=== PATIENT | male | born 1955 | race Caucasian/White ===

== ENCOUNTER → 2016-12-20 | Outpatient (CLI) | payer OTHER ==
[2016-12-20 07:12] LABS: MEAN CORPUSCULAR HEMOGLOBIN 31.6 pg (27.0-33.0); MEAN CORPUSCULAR HGB CONC 32.8 g/dl (32.0-36.5); MEAN CORPUSCULAR VOLUME 96.2 fl (80.0-96.0); RED CELL DISTRIBUTION WIDTH 12.4 % (11.5-14.5); WHITE BLOOD COUNT 8.8 K/mm3 (4.0-10.0)
[2016-12-20 07:47] LABS: ALBUMIN 3.7 GM/DL (3.2-5.2); ALBUMIN/GLOBULIN RATIO 1.23 (1.00-1.93); ALKALINE PHOSPHATASE 71 U/L (45-117); ALT/SGPT 39 U/L (12-78); ANION GAP 10 MEQ/L (8-16); AST/SGOT 23 U/L (15-37); BILIRUBIN,TOTAL 0.9 MG/DL (0.2-1.0); BLOOD UREA NITROGEN 11 MG/DL (7-18); CALCIUM LEVEL 8.6 MG/DL (8.8-10.2); CARBON DIOXIDE LEVEL 27 MEQ/L (21-32); CHLORIDE LEVEL 101 MEQ/L (98-107); CHOLESTEROL LEVEL 180 MG/DL (<200); GLOMERULAR FILTRATION RATE > 60.0 (>49); GLUCOSE, FASTING 178 MG/DL (80-110); POTASSIUM SERUM 4.2 MEQ/L (3.5-5.1); SODIUM LEVEL 138 MEQ/L (136-145); TOTAL PROTEIN 6.7 GM/DL (6.4-8.2); TRIGLYCERIDES LEVEL 106 MG/DL (<150)
== END ==
LOC: M LAB 06:41
PROVIDERS: ATTEND Family Medicine
DX: E11.65 Type 2 diabetes mellitus with hyperglycemia (principal)

== ENCOUNTER → 2017-02-02 | Outpatient (CLI) | payer OTHER ==
[~2017-02-02] MED LIST: ASPI1TAB PO; CARV6.25 PO; CIPR500T3 PO; FLOM5CAP PO; GLIM2TA PO; LISI-542 PO; METF10004 PO; NAPR250T4 PO; OXYB10TA PO; TYLE650T35 PO; ZOCO40TA PO
[2017-02-02 07:43] LABS: MEAN CORPUSCULAR HEMOGLOBIN 32.6 pg (27.0-33.0); MEAN CORPUSCULAR HGB CONC 33.8 g/dl (32.0-36.5); MEAN CORPUSCULAR VOLUME 96.5 fl (80.0-96.0); RED CELL DISTRIBUTION WIDTH 12.5 % (11.5-14.5); WHITE BLOOD COUNT 9.1 K/mm3 (4.0-10.0)
[2017-02-02 08:08] LABS: INR 0.94
[2017-02-02 08:11] LABS: ANION GAP 10 MEQ/L (8-16); BLOOD UREA NITROGEN 10 MG/DL (7-18); CALCIUM LEVEL 9.1 MG/DL (8.8-10.2); CARBON DIOXIDE LEVEL 26 MEQ/L (21-32); CHLORIDE LEVEL 104 MEQ/L (98-107); GLOMERULAR FILTRATION RATE > 60.0 (>49); GLUCOSE, FASTING 162 MG/DL (80-110); POTASSIUM SERUM 4.4 MEQ/L (3.5-5.1); SODIUM LEVEL 140 MEQ/L (136-145)
== END ==
LOC: M LAB 07:03
PROVIDERS: ATTEND Urology
DX: N32.81 Overactive bladder (principal)

== ENCOUNTER → 2017-02-07 | Outpatient (CLI) | payer OTHER ==
--- NOTE | 2017-02-07 11:23 | REP ---
Chest x-ray: Two views. History: Overactive bladder. Comparison chest x-ray: December 10, 2015. Findings: The lungs are symmetrically aerated and clear. The pleural angles are sharp. Heart is not enlarged. There are degenerative changes in the thoracic spine. Pulmonary vasculature is not increased. Impression: No active disease. Signed by Refugio Leslie MD 02/07/2017 02:02 P
== END ==
LOC: M ADAMS 10:33
PROVIDERS: ATTEND Urology
DX: N32.81 Overactive bladder (principal)

== ENCOUNTER → 2017-02-21 | Day surgery (SDC) | payer OTHER ==
[~2017-02-21] VITALS: Ht 177.8 cm; Wt 137.4 kg
[~2017-02-21] MED LIST changes: +ACETAMINOPHEN 650MG ER TAB (TYLENOL ARTHRITIS) PO SCH; +DESFLURANE 240 ML INHALANT As Ordered ONE; +LIDOCAINE 2% INJ 100 MG/5 ML SDV (FOR ANES.) As Ordered ONE; +LR 1,000 ML IV ONE; +LR 1,000 ML IV SCH; +MIDAZOLAM INJ 2 MG/2 ML VIAL (J2250) As Ordered ONE; +ONDANSETRON 4MG/2ML VIAL (J2405) As Ordered ONE; +ONDANSETRON 4MG/2ML VIAL (J2405) IV PRN; +PERCOCET 5MG/325MG TAB PO PRN; +PROPOFOL 200 MG/20 ML VIAL As Ordered ONE; +fentaNYL 100 MCG/2 ML INJECTION (J3010) As Ordered ONE; +fentaNYL 100 MCG/2 ML INJECTION (J3010) IV PRN
[2017-02-21 15:40] VITALS: BP 163/72
--- NOTE | 2017-02-22 12:10 | RO ---
DATE OF PROCEDURE: 02/21/2017 PREOPERATIVE DIAGNOSIS: Midline prostatic hyperplasia plus prostatic enlargement plus bladder outlet obstruction. POSTOPERATIVE DIAGNOSIS: Midline prostatic hyperplasia plus prostatic enlargement plus bladder outlet obstruction. FINDINGS: Benign prostatic hyperplasia, severe. PROCEDURE: Cystoscopy, plus transurethral resection of the prostate, bipolar TURP. SURGEON: Dr. Cameron Hughes POWERHOUSE TENDER: None. ANESTHESIA: General. COMPLICATIONS: None. ESTIMATED BLOOD LOSS: N/A. HISTORY OF PRESENT ILLNESS: 61-year-old male patient that has low urinary tract symptoms. He has failed Flomax and oxybutynin. On cystoscopy, we found a very large prominent elevated bladder neck and lateral lobes touching. For this reason, we decided to actually take him to the OR for cystoscopy plus transurethral resection of the prostate. Patient has signed the consent form. PROCEDURE DESCRIPTION: With patient under general anesthesia in supine modified low lithotomy position, after prepping and draping the area of concern which included the entire genitalia and abdomen, we started by introducing a cystoscopy #21-Estonian and 30 lens under videoscopy guidance. The fossa navicularis could not be passed with cystoscope. For this reason, we did [place] dilatation of the urethra up to 30 Charriere. Then we passed the cystoscope and the penile urethra, bulbar urethra and membranous urethra were totally normal. The prostate urethra showed a block in the bladder neck with an elevated bladder neck, very high riding in lateral lobes. The bladder had mild trabeculations. Both ureteral orifice were seen excreting clear urine. There were no tumors, no stones, no foreign objects in the bladder. We then exchanged the cystoscope for resectoscope. Under normal saline, we resected the high riding bladder neck from 5 o'clock to 7 o'clock. We then resected the left lateral lobe and the right lateral lobe. With an [employer] evacuator, we extracted all the chips of prostatic tissue. Once we reached the capsule, we fulgurated all the bleeding vessels and secured hemostasis. We then proceeded to actually take the resectoscope out and place a Duarte catheter #20-Estonian with a three way, 20 mL balloon inflated inside the bladder and to gravity. We placed irrigation. PLAN: The patient will go home if irrigation is clear and irrigation will be plugged at that moment in time. He will go home with antibiotic and pain medication. Followup next Sunday for voiding trial. All the chips of prostate tissue were sent for permanent pathology analysis.
== END | disposition home or self-care (01) ==
LOC: M SDC 07:39
PROVIDERS: ATTEND Urology
DX: N40.1 Benign prostatic hyperplasia with lower urinary tract symptoms (principal); I10 Essential (primary) hypertension; E11.9 Type 2 diabetes mellitus without complications; E78.5 Hyperlipidemia, unspecified; G47.30 Sleep apnea, unspecified; Z79.82 Long term (current) use of aspirin; Z79.899 Other long term (current) drug therapy
CPT/HCPCS: 36415; 52601; 86850; 86900; 86901; 88305; J0690; J2250; J2405; J3010

== ENCOUNTER → 2017-03-14 | Outpatient (REF) | payer OTHER ==
[~2017-03-14] MED LIST changes: -ACETAMINOPHEN 650MG ER TAB (TYLENOL ARTHRITIS) PO SCH; -DESFLURANE 240 ML INHALANT As Ordered ONE; -LIDOCAINE 2% INJ 100 MG/5 ML SDV (FOR ANES.) As Ordered ONE; -LR 1,000 ML IV ONE; -LR 1,000 ML IV SCH; -MIDAZOLAM INJ 2 MG/2 ML VIAL (J2250) As Ordered ONE; -ONDANSETRON 4MG/2ML VIAL (J2405) As Ordered ONE; -ONDANSETRON 4MG/2ML VIAL (J2405) IV PRN; -PERCOCET 5MG/325MG TAB PO PRN; -PROPOFOL 200 MG/20 ML VIAL As Ordered ONE; -fentaNYL 100 MCG/2 ML INJECTION (J3010) As Ordered ONE; -fentaNYL 100 MCG/2 ML INJECTION (J3010) IV PRN
== END ==
LOC: M SMT 16:15
PROVIDERS: ATTEND Urology
DX: N40.1 Benign prostatic hyperplasia with lower urinary tract symptoms (principal)

== ENCOUNTER → 2017-05-03 | Outpatient (REF) | payer OTHER ==
[2017-05-03 20:07] LABS: CALCIUM OXALATE CRYSTALS MODERATE
== END ==
LOC: M SMT 16:53
PROVIDERS: ATTEND Urology
DX: N40.0 Benign prostatic hyperplasia without lower urinary tract symptoms (principal)

== ENCOUNTER → 2017-07-07 | Outpatient (CLI) | payer OTHER ==
[2017-07-07 08:47] LABS: ANION GAP 8 MEQ/L (8-16); BLOOD UREA NITROGEN 14 MG/DL (7-18); CALCIUM LEVEL 8.4 MG/DL (8.8-10.2); CARBON DIOXIDE LEVEL 27 MEQ/L (21-32); CHLORIDE LEVEL 105 MEQ/L (98-107); CREATININE FOR GFR 0.93 MG/DL (0.70-1.30); GLOMERULAR FILTRATION RATE > 60.0 (>49); GLUCOSE, FASTING 159 MG/DL (80-110); POTASSIUM SERUM 4.4 MEQ/L (3.5-5.1); SODIUM LEVEL 140 MEQ/L (136-145)
== END ==
LOC: M LAB 07:58
PROVIDERS: ATTEND Family Medicine
DX: E11.65 Type 2 diabetes mellitus with hyperglycemia (principal)

== ENCOUNTER → 2017-08-06 | Outpatient (REF) | payer OTHER ==
[2017-08-06 17:29] LABS: APPEARANCE, URINE CLEAR (CLEAR); BACTERIA, URINE AUTO NEGATIVE (NEGATIVE); BILIRUBIN, URINE AUTO NEGATIVE (NEGATIVE); BLOOD, URINE BLOOD NEGATIVE (NEGATIVE); COLOR, URINE YELLOW (YELLOW); GLUCOSE, URINE (UA) AUTO NEGATIVE (NEGATIVE); KETONE, URINE AUTO NEGATIVE (NEGATIVE); LEUKOCYTE ESTERASE, URINE AUTO NEGATIVE (NEGATIVE); MUCUS, URINE SMALL (NEGATIVE); NITRITE, URINE AUTO NEGATIVE (NEGATIVE); PROTEIN, URINE AUTO NEGATIVE (NEGATIVE); RBC, URINE AUTO 3 /HPF (0-3); SPECIFIC GRAVITY URINE AUTO 1.019 (1.002-1.035); SQUAMOUS EPITHELIAL CELL UR AU 0 /HPF (0-6); UROBILINOGEN, URINE AUTO 0.2 mg/dL (0.0-2.0); WBC, URINE AUTO 2 /HPF (0-3)
== END ==
LOC: M SMT 16:37
DX: R39.9 Unspecified symptoms and signs involving the genitourinary system (principal)

== ENCOUNTER → 2017-08-30 | Outpatient (CLI) | payer OTHER | LOC: M WUC 10:43 | DX: M25.579 Pain in unspecified ankle and joints of unspecified foot (principal) ==

== ENCOUNTER 2017-11-28 09:55 | Day surgery (SDC) | payer OTHER ==
[2017-11-28] MEDS ORDERED: NS 1,000 ML IV (10:00)
[2017-11-28] MEDS ORDERED: PROPOFOL 200 MG/20 ML VIAL As Ordered ×2 (10:51→10:52)
== END 2017-11-28 12:11 | disposition home or self-care (01) ==
LOC: M OPP 09:55
DX: Z12.11 Encounter for screening for malignant neoplasm of colon (principal); Z86.010 Personal history of colon polyps; K64.0 First degree hemorrhoids; I10 Essential (primary) hypertension; E78.5 Hyperlipidemia, unspecified; E11.9 Type 2 diabetes mellitus without complications; M19.90 Unspecified osteoarthritis, unspecified site; G47.8 Other sleep disorders; G47.30 Sleep apnea, unspecified; R06.83 Snoring; R06.02 Shortness of breath; N40.1 Benign prostatic hyperplasia with lower urinary tract symptoms; R39.15 Urgency of urination; K57.30 Diverticulosis of large intestine without perforation or abscess without bleeding; E66.9 Obesity, unspecified; Z79.84 Long term (current) use of oral hypoglycemic drugs; Z79.82 Long term (current) use of aspirin; Z79.899 Other long term (current) drug therapy; Z80.52 Family history of malignant neoplasm of bladder; Z80.8 Family history of malignant neoplasm of other organs or systems
CPT/HCPCS: 45378

== ENCOUNTER → 2018-02-06 | Outpatient (CLI) | payer OTHER ==
[2018-02-06 13:50] LABS: PSA SCREENING 0.35 NG/ML (< 4.0)
== END ==
LOC: M WUC 10:13
DX: Z12.5 Encounter for screening for malignant neoplasm of prostate (principal)
CPT/HCPCS: G0103

== ENCOUNTER → 2018-04-08 | Outpatient (CLI) | payer OTHER ==
[2018-04-08 22:11] LABS: ALBUMIN 3.8 GM/DL (3.2-5.2); ALKALINE PHOSPHATASE 74 U/L (45-117); ALT/SGPT 33 U/L (12-78); ANION GAP 8 MEQ/L (8-16); AST/SGOT 20 U/L (7-37); BLOOD UREA NITROGEN 13 MG/DL (7-18); CARBON DIOXIDE LEVEL 27 MEQ/L (21-32); CHLORIDE LEVEL 104 MEQ/L (98-107); CREATININE FOR GFR 0.89 MG/DL (0.70-1.30); GLOMERULAR FILTRATION RATE > 60.0 (>49); GLUCOSE, FASTING 192 MG/DL (70-100); POTASSIUM SERUM 4.2 MEQ/L (3.5-5.1); SODIUM LEVEL 139 MEQ/L (136-145)
[2018-04-08 22:50] LABS: ESTIMATED AVERAGE GLUCOSE 189 MG/DL (60-110); HEMOGLOBIN A1c 8.2 %
[2018-04-08 23:11] LABS: ALBUMIN/GLOBULIN RATIO 1.19 (1.00-1.93)
== END ==
LOC: M WUC 08:53
DX: E11.65 Type 2 diabetes mellitus with hyperglycemia (principal)
CPT/HCPCS: 80053

== ENCOUNTER → 2018-06-19 | Outpatient (CLI) | payer OTHER ==
[2018-06-19 13:29] LABS: BASO # 0.1 10^3/uL (0.0-0.2); BASO % 0.7 % (0.0-1.0); EOS # 0.3 10^3/uL (0.0-0.50); EOS % 3.4 % (0.0-3.0); HEMATOCRIT 46.5 % (42.0-52.0); HEMOGLOBIN 15.2 g/dl (13.5-17.5); IMMATURE GRANULOCYTE % 0.3 % (0-3.0); LYMPH # 2.5 10^3/uL (1.5-4.5); LYMPH % 28.8 % (24.0-44.0); MEAN CORPUSCULAR HEMOGLOBIN 31.7 pg (27.0-33.0); MEAN CORPUSCULAR HGB CONC 32.7 g/dl (32.0-36.5); MEAN CORPUSCULAR VOLUME 96.9 fl (80.0-96.0); MONO # 0.9 10^3/uL (0.0-0.8); MONO % 10.2 % (0.0-5.0); NEUTROPHILS % 56.6 % (36.0-66.0); PLATELET COUNT, AUTOMATED 263 10^3/uL (150-450); RED CELL DISTRIBUTION WIDTH 12.8 % (11.5-14.5); WHITE BLOOD COUNT 8.8 10^3/uL (4.0-10.0)
[2018-06-19 13:39] LABS: ALBUMIN 3.9 GM/DL (3.2-5.2); ALBUMIN/GLOBULIN RATIO 1.26 (1.00-1.93); ALKALINE PHOSPHATASE 70 U/L (45-117); ALT/SGPT 28 U/L (12-78); ANION GAP 5 MEQ/L (8-16); AST/SGOT 19 U/L (7-37); BILIRUBIN,TOTAL 0.9 MG/DL (0.2-1.0); BLOOD UREA NITROGEN 14 MG/DL (7-18); CALCIUM LEVEL 9.3 MG/DL (8.8-10.2); CARBON DIOXIDE LEVEL 29 MEQ/L (21-32); CHLORIDE LEVEL 105 MEQ/L (98-107); CREATININE FOR GFR 1.02 MG/DL (0.70-1.30); GLOMERULAR FILTRATION RATE > 60.0 (>49); GLUCOSE, FASTING 126 MG/DL (70-100); POTASSIUM SERUM 4.5 MEQ/L (3.5-5.1); SODIUM LEVEL 139 MEQ/L (136-145)
[2018-06-19 13:44] LABS: ESTIMATED AVERAGE GLUCOSE 143 MG/DL (60-110); HEMOGLOBIN A1c 6.6 %
== END ==
LOC: M WUC 10:21
DX: Z01.812 Encounter for preprocedural laboratory examination (principal); E66.01 Morbid (severe) obesity due to excess calories; E11.9 Type 2 diabetes mellitus without complications; G47.33 Obstructive sleep apnea (adult) (pediatric)
CPT/HCPCS: 84443

== ENCOUNTER → 2018-07-05 | Outpatient (CLI) | payer OTHER ==
[2018-07-05 11:18] LABS: ESTIMATED AVERAGE GLUCOSE 148 MG/DL (60-110); HEMOGLOBIN A1c 6.8 %
[2018-07-05 11:30] LABS: FREE T4 1.16 NG/DL (0.76-1.46)
== END ==
LOC: M WUC 09:38
DX: E11.65 Type 2 diabetes mellitus with hyperglycemia (principal)
CPT/HCPCS: 84443

== ENCOUNTER → 2018-08-14 | Outpatient (CLI) | payer OTHER ==
[~2018-08-14] MED LIST changes: +FLOM0.4C39 PO; -FLOM5CAP PO
[2018-08-14 11:59] LABS: BASO % 0.6 % (0.0-1.0); EOS # 0.2 10^3/uL (0.0-0.50); EOS % 3.4 % (0.0-3.0); HEMATOCRIT 41.8 % (42.0-52.0); HEMOGLOBIN 13.8 g/dl (13.5-17.5); LYMPH % 31.9 % (24.0-44.0); MEAN CORPUSCULAR HEMOGLOBIN 31.2 pg (27.0-33.0); MEAN CORPUSCULAR VOLUME 94.6 fl (80.0-96.0); MONO # 0.7 10^3/uL (0.0-0.8); MONO % 11.3 % (0.0-5.0); NEUTROPHILS # 3.4 10^3/uL (1.8-7.7); NEUTROPHILS % 52.5 % (36.0-66.0); PLATELET COUNT, AUTOMATED 216 10^3/uL (150-450); RED BLOOD COUNT 4.42 10^6/uL (4.30-6.10); WHITE BLOOD COUNT 6.4 10^3/uL (4.0-10.0)
[2018-08-14 12:00] LABS: HEMATOCRIT 41.8 % (42.0-52.0)
[2018-08-14 12:29] LABS: HEMOGLOBIN A1c 6.7 %
[2018-08-14 12:33] LABS: ALBUMIN 3.5 GM/DL (3.2-5.2); ALT/SGPT 25 U/L (12-78); BILIRUBIN,TOTAL 0.8 MG/DL (0.2-1.0); BLOOD UREA NITROGEN 8 MG/DL (7-18); CALCIUM LEVEL 8.8 MG/DL (8.8-10.2); CARBON DIOXIDE LEVEL 29 MEQ/L (21-32); CHLORIDE LEVEL 103 MEQ/L (98-107); CREATININE FOR GFR 0.67 MG/DL (0.70-1.30); FERRITIN 383 NG/ML (26-388); GLOMERULAR FILTRATION RATE > 60.0 (>49); GLUCOSE, FASTING 138 MG/DL (70-100); IRON (FE) 70 UG/DL (65-175); MAGNESIUM LEVEL 1.8 MG/DL (1.8-2.4); PERCENT SATURATION 29.4 % (19.7-50.0); PHOSPHORUS LEVEL 2.8 MG/DL (2.5-4.9); POTASSIUM SERUM 3.7 MEQ/L (3.5-5.1); SODIUM LEVEL 140 MEQ/L (136-145); TOTAL IRON BINDING CAPACITY 238 UG/DL (250-450); VITAMIN B12 LEVEL 1593 PG/ML (247-911)
== END ==
LOC: M WUC 10:01
PROVIDERS: ATTEND Surgery
DX: K91.2 Postsurgical malabsorption, not elsewhere classified (principal); E55.9 Vitamin D deficiency, unspecified; Z98.84 Bariatric surgery status

== ENCOUNTER → 2018-10-02 | Outpatient (CLI) | payer OTHER ==
[2018-10-02 10:25] LABS: HEMOGLOBIN A1c 6.2 %
== END ==
LOC: M WUC 08:22
PROVIDERS: ATTEND Physician Assistant
DX: E11.65 Type 2 diabetes mellitus with hyperglycemia (principal)

== ENCOUNTER → 2018-10-24 | Outpatient (REF) | payer OTHER | LOC: M LAB REF 15:04 | PROVIDERS: ATTEND Surgery | DX: L72.3 Sebaceous cyst (principal) ==

== ENCOUNTER → 2019-01-02 | Outpatient (CLI) | payer OTHER ==
[~2019-01-02] MED LIST changes: -ASPI1TAB PO; +ASPI81TA26 PO; -GLIM2TA PO; +GLIM2TAB29 PO
[2019-01-02 09:28] LABS: BASO # 0.1 10^3/uL (0.0-0.2); BASO % 1.1 % (0.0-1.0); EOS # 0.3 10^3/uL (0.0-0.50); EOS % 4.3 % (0.0-3.0); HEMATOCRIT 40.5 % (42.0-52.0); HEMOGLOBIN 13.2 g/dl (13.5-17.5); LYMPH # 2.8 10^3/uL (1.5-4.5); LYMPH % 39.9 % (24.0-44.0); MEAN CORPUSCULAR HEMOGLOBIN 32.8 pg (27.0-33.0); MEAN CORPUSCULAR HGB CONC 32.6 g/dl (32.0-36.5); MEAN CORPUSCULAR VOLUME 100.5 fl (80.0-96.0); MONO # 0.7 10^3/uL (0.0-0.8); MONO % 9.8 % (0.0-5.0); NEUTROPHILS # 3.1 10^3/uL (1.8-7.7); NEUTROPHILS % 44.8 % (36.0-66.0); PLATELET COUNT, AUTOMATED 272 10^3/uL (150-450); RED BLOOD COUNT 4.03 10^6/uL (4.30-6.10)
[2019-01-02 09:42] LABS: HEMOGLOBIN A1c 5.7 %
[2019-01-02 09:59] LABS: ALBUMIN 3.6 GM/DL (3.2-5.2); ALT/SGPT 34 U/L (12-78); BILIRUBIN,TOTAL 1.1 MG/DL (0.2-1.0); BLOOD UREA NITROGEN 10 MG/DL (7-18); CALCIUM LEVEL 9.5 MG/DL (8.8-10.2); CARBON DIOXIDE LEVEL 30 MEQ/L (21-32); CHLORIDE LEVEL 105 MEQ/L (98-107); CREATININE FOR GFR 0.75 MG/DL (0.70-1.30); FERRITIN 106 NG/ML (26-388); GLOMERULAR FILTRATION RATE > 60.0 (>49); GLUCOSE, FASTING 91 MG/DL (70-100); IRON (FE) 60 UG/DL (65-175); MAGNESIUM LEVEL 2.4 MG/DL (1.8-2.4); PERCENT SATURATION 20.8 % (19.7-50.0); PHOSPHORUS LEVEL 4.5 MG/DL (2.5-4.9); POTASSIUM SERUM 4.4 MEQ/L (3.5-5.1); SODIUM LEVEL 143 MEQ/L (136-145); TOTAL IRON BINDING CAPACITY 289 UG/DL (250-450); TOTAL PROTEIN 6.2 GM/DL (6.4-8.2)
[2019-01-02 10:08] LABS: TOTAL 25(OH) VITAMIN D 26.8 NG/ML (30.0-100.0); VITAMIN B12 LEVEL 1384 PG/ML (247-911)
[2019-01-02 10:09] LABS: FOLATE 9.8 NG/ML (>5.4)
== END ==
LOC: M WUC 08:15
PROVIDERS: ATTEND Physician Assistant
DX: K91.2 Postsurgical malabsorption, not elsewhere classified (principal); Z98.84 Bariatric surgery status; E55.9 Vitamin D deficiency, unspecified

== ENCOUNTER → 2019-05-13 | Outpatient (CLI) | payer MEDICARE, OTHER ==
[~2019-05-13] MED LIST changes: -OXYB10TA PO; +OXYB10TA2 PO
[2019-05-13 12:26] LABS: BASO % 0.7 % (0.0-1.0); EOS # 0.2 10^3/uL (0.0-0.5); EOS % 3.1 % (0.0-3.0); HEMATOCRIT 42.4 % (42.0-52.0); HEMOGLOBIN 14.2 g/dl (13.5-17.5); LYMPH # 2.3 10^3/uL (1.5-5.0); LYMPH % 42.9 % (24.0-44.0); MEAN CORPUSCULAR HEMOGLOBIN 33.5 pg (27.0-33.0); MEAN CORPUSCULAR HGB CONC 33.5 g/dl (32.0-36.5); MONO # 0.6 10^3/uL (0.0-0.8); MONO % 10.8 % (0.0-5.0); NEUTROPHILS # 2.3 10^3/uL (1.5-8.5); NEUTROPHILS % 42.3 % (36.0-66.0); PLATELET COUNT, AUTOMATED 236 10^3/uL (150-450); RED BLOOD COUNT 4.24 10^6/uL (4.30-6.10); WHITE BLOOD COUNT 5.5 10^3/uL (4.0-10.0)
[2019-05-13 12:44] LABS: ALBUMIN 3.6 GM/DL (3.2-5.2); ALT/SGPT 33 U/L (12-78); BILIRUBIN,TOTAL 1.4 MG/DL (0.2-1.0); BLOOD UREA NITROGEN 16 MG/DL (7-18); CARBON DIOXIDE LEVEL 31 MEQ/L (21-32); CHLORIDE LEVEL 104 MEQ/L (98-107); CHOLESTEROL LEVEL 221 MG/DL (<200); CHOLESTEROL RISK RATIO 3.298 (<5); CREATININE FOR GFR 0.76 MG/DL (0.70-1.30); FERRITIN 91 NG/ML (26-388); FREE T4 1.03 NG/DL (0.76-1.46); GLOMERULAR FILTRATION RATE > 60.0 (>49); GLUCOSE, FASTING 103 MG/DL (70-100); HDL CHOLESTEROL 67 MG/DL (>40); IRON (FE) 124 UG/DL (65-175); LDL CHOLESTEROL 138 MG/DL (<100); NON-HDL-C 154 MG/DL; PERCENT SATURATION 40.7 % (19.7-50.0); POTASSIUM SERUM 3.9 MEQ/L (3.5-5.1); SODIUM LEVEL 141 MEQ/L (136-145); TOTAL IRON BINDING CAPACITY 305 UG/DL (250-450); TOTAL PROTEIN 6.4 GM/DL (6.4-8.2); TRIGLYCERIDES LEVEL 82 MG/DL (<150)
== END ==
LOC: M WUC 09:28
PROVIDERS: ATTEND Physician Assistant
DX: Z98.84 Bariatric surgery status (principal); E78.2 Mixed hyperlipidemia; D64.9 Anemia, unspecified

== ENCOUNTER → 2019-06-08 | Outpatient (CLI) | payer MEDICARE, OTHER ==
--- NOTE | 2019-06-10 13:57 | SLEEPCENT ---
DATE OF STUDY: 06/08/2019 ORDERED BY: Dr. Blanco Nocturnal polysomnography was performed for the retitration of pressure therapy in this patient with a prior history of obstructive sleep apnea syndrome who has effected significant weight loss. For testing, a ResMed AirFit F20 full face mask of medium size was used and 4 cm of water pressure were applied to the circuit and the lights were extinguished. 7 hours and 44 minutes of data were reviewed. There were 390.5 minutes of sleep identified. Sleep latency was mildly prolonged at 21.5 minutes. Rapid eye movement (REM) latency was normal at 85.5 minutes. Sleep architecture improved with optimal pressure therapy. There were 3 REM cycles appreciated. Overall sleep efficiency was 85%. The patient's electrocardiogram showed a sinus rhythm with an average heart rate of 50 beats per minute. Electroencephalogram (EEG) showed normal waveforms for awake and sleep. Respiratory events were fully palliated with C-PAP at a pressure of +8. Some limb activity was seen early in the study, limb movement arousal index was 4. IMPRESSION: Obstructive sleep apnea syndrome (G47.33). RECOMMENDATION: Nightly use of pressure therapy at 8 cm of water.
== END ==
LOC: M SLEEP 20:00
PROVIDERS: ATTEND Internal Medicine Pulmonary Disease
DX: G47.33 Obstructive sleep apnea (adult) (pediatric) (principal)

== ENCOUNTER → 2019-06-23 | Outpatient (CLI) | payer MEDICARE, OTHER ==
[2019-06-23 12:51] LABS: BASO # 0.1 10^3/uL (0.0-0.2); BASO % 1.1 % (0.0-1.0); EOS # 0.3 10^3/uL (0.0-0.5); EOS % 5.8 % (0.0-3.0); HEMATOCRIT 43.8 % (42.0-52.0); HEMOGLOBIN 14.1 g/dl (13.5-17.5); LYMPH # 2.5 10^3/uL (1.5-5.0); LYMPH % 46.6 % (24.0-44.0); MEAN CORPUSCULAR HEMOGLOBIN 32.6 pg (27.0-33.0); MEAN CORPUSCULAR HGB CONC 32.2 g/dl (32.0-36.5); MEAN CORPUSCULAR VOLUME 101.2 fl (80.0-96.0); MONO # 0.7 10^3/uL (0.0-0.8); MONO % 12.1 % (0.0-5.0); NEUTROPHILS # 1.9 10^3/uL (1.5-8.5); NEUTROPHILS % 34.2 % (36.0-66.0); PLATELET COUNT, AUTOMATED 210 10^3/uL (150-450); RED BLOOD COUNT 4.33 10^6/uL (4.30-6.10); WHITE BLOOD COUNT 5.4 10^3/uL (4.0-10.0)
[2019-06-23 12:56] LABS: ALBUMIN 3.7 GM/DL (3.2-5.2); ALT/SGPT 58 U/L (12-78); BILIRUBIN,TOTAL 1.3 MG/DL (0.2-1.0); BLOOD UREA NITROGEN 14 MG/DL (7-18); CALCIUM LEVEL 9.3 MG/DL (8.8-10.2); CARBON DIOXIDE LEVEL 32 MEQ/L (21-32); CHLORIDE LEVEL 108 MEQ/L (98-107); CREATININE FOR GFR 0.83 MG/DL (0.70-1.30); FERRITIN 88 NG/ML (26-388); GLOMERULAR FILTRATION RATE > 60.0 (>49); GLUCOSE, FASTING 94 MG/DL (70-100); IRON (FE) 76 UG/DL (65-175); MAGNESIUM LEVEL 2.2 MG/DL (1.8-2.4); PERCENT SATURATION 25.9 % (19.7-50.0); PHOSPHORUS LEVEL 4.7 MG/DL (2.5-4.9); POTASSIUM SERUM 4.3 MEQ/L (3.5-5.1); SODIUM LEVEL 145 MEQ/L (136-145); TOTAL IRON BINDING CAPACITY 293 UG/DL (250-450); TOTAL PROTEIN 6.3 GM/DL (6.4-8.2)
[2019-06-23 12:59] LABS: HEMATOCRIT 43.8 % (42.0-52.0)
[2019-06-23 13:02] LABS: TOTAL 25(OH) VITAMIN D 34.9 NG/ML (30.0-100.0); VITAMIN B12 LEVEL 1960 PG/ML (247-911)
[2019-06-23 14:00] LABS: HEMOGLOBIN A1c 5.5 %
== END ==
LOC: M WUC 08:45
PROVIDERS: ATTEND Physician Assistant
DX: K91.2 Postsurgical malabsorption, not elsewhere classified (principal); Z98.84 Bariatric surgery status; E55.9 Vitamin D deficiency, unspecified

== ENCOUNTER → 2019-09-17 | Outpatient (CLI) | payer MEDICARE, OTHER ==
[~2019-09-17] MED LIST changes: -OXYB10TA2 PO; +OXYB10TA23 PO
[2019-09-17 12:55] LABS: BASO # 0.1 10^3/uL (0.0-0.2); BASO % 1.3 % (0.0-1.0); EOS # 0.3 10^3/uL (0.0-0.5); EOS % 4.4 % (0.0-3.0); HEMATOCRIT 43.1 % (42.0-52.0); HEMOGLOBIN 14.1 g/dl (13.5-17.5); LYMPH # 2.7 10^3/uL (1.5-5.0); LYMPH % 43.4 % (24.0-44.0); MEAN CORPUSCULAR HEMOGLOBIN 32.3 pg (27.0-33.0); MEAN CORPUSCULAR HGB CONC 32.7 g/dl (32.0-36.5); MEAN CORPUSCULAR VOLUME 98.9 fl (80.0-96.0); MONO # 0.6 10^3/uL (0.0-0.8); MONO % 9.8 % (0.0-5.0); NEUTROPHILS # 2.5 10^3/uL (1.5-8.5); NEUTROPHILS % 40.9 % (36.0-66.0); PLATELET COUNT, AUTOMATED 231 10^3/uL (150-450); RED BLOOD COUNT 4.36 10^6/uL (4.30-6.10); WHITE BLOOD COUNT 6.1 10^3/uL (4.0-10.0)
[2019-09-17 13:12] LABS: ALT/SGPT 56 U/L (12-78); BILIRUBIN,TOTAL 1.7 MG/DL (0.2-1.0); BLOOD UREA NITROGEN 19 MG/DL (7-18); CALCIUM LEVEL 9.4 MG/DL (8.8-10.2); CARBON DIOXIDE LEVEL 33 MEQ/L (21-32); CHLORIDE LEVEL 105 MEQ/L (98-107); CHOLESTEROL LEVEL 191 MG/DL (<200); CHOLESTEROL RISK RATIO 2.581 (<5); CREATININE FOR GFR 0.85 MG/DL (0.70-1.30); GLOMERULAR FILTRATION RATE > 60.0 (>49); GLUCOSE, FASTING 110 MG/DL (70-100); HDL CHOLESTEROL 74 MG/DL (>40); LDL CHOLESTEROL 101 MG/DL (<100); NON-HDL-C 117 MG/DL; POTASSIUM SERUM 4.1 MEQ/L (3.5-5.1); SODIUM LEVEL 139 MEQ/L (136-145); TOTAL PROTEIN 6.6 GM/DL (6.4-8.2); TRIGLYCERIDES LEVEL 79 MG/DL (<150)
[2019-09-17 13:33] LABS: HEMOGLOBIN A1c 5.8 %
== END ==
LOC: M WUC 08:51
PROVIDERS: ATTEND Physician Assistant
DX: E78.2 Mixed hyperlipidemia (principal); D64.9 Anemia, unspecified; R73.01 Impaired fasting glucose; Z79.82 Long term (current) use of aspirin

== ENCOUNTER → 2020-06-25 | Outpatient (CLI) | payer MEDICARE, OTHER ==
[~2020-06-25] MED LIST changes: +ACET650T61 PO; -TYLE650T35 PO
[2020-06-25 11:51] LABS: BASO # 0.1 10^3/uL (0.0-0.2); BASO % 0.8 % (0.0-1.0); EOS # 0.2 10^3/uL (0.0-0.5); HEMATOCRIT 44.8 % (42.0-52.0); HEMOGLOBIN 14.2 g/dl (13.5-17.5); LYMPH # 2.7 10^3/uL (1.5-5.0); LYMPH % 36.6 % (24.0-44.0); MEAN CORPUSCULAR HEMOGLOBIN 31.6 pg (27.0-33.0); MEAN CORPUSCULAR HGB CONC 31.7 g/dl (32.0-36.5); MEAN CORPUSCULAR VOLUME 99.6 fl (80.0-96.0); MONO # 0.7 10^3/uL (0.0-0.8); MONO % 10.1 % (0.0-5.0); NEUTROPHILS # 3.6 10^3/uL (1.5-8.5); NEUTROPHILS % 49.1 % (36.0-66.0); PLATELET COUNT, AUTOMATED 240 10^3/uL (150-450); WHITE BLOOD COUNT 7.3 10^3/uL (4.0-10.0)
[2020-06-25 12:13] LABS: HEMOGLOBIN A1c 5.6 %
[2020-06-25 12:18] LABS: ALBUMIN 3.7 GM/DL (3.2-5.2); ALT/SGPT 34 U/L (12-78); BILIRUBIN,TOTAL 1.1 MG/DL (0.2-1.0); BLOOD UREA NITROGEN 12 MG/DL (7-18); CALCIUM LEVEL 8.9 MG/DL (8.8-10.2); CARBON DIOXIDE LEVEL 30 MEQ/L (21-32); CHLORIDE LEVEL 106 MEQ/L (98-107); CREATININE FOR GFR 0.87 MG/DL (0.70-1.30); FERRITIN 102 NG/ML (26-388); GLOMERULAR FILTRATION RATE > 60.0 (>49); GLUCOSE, FASTING 107 MG/DL (70-100); IRON (FE) 93 UG/DL (65-175); MAGNESIUM LEVEL 2.3 MG/DL (1.8-2.4); PERCENT SATURATION 31.3 % (19.7-50.0); PHOSPHORUS LEVEL 3.9 MG/DL (2.5-4.9); POTASSIUM SERUM 4.2 MEQ/L (3.5-5.1); SODIUM LEVEL 141 MEQ/L (136-145); TOTAL IRON BINDING CAPACITY 297 UG/DL (250-450); TOTAL PROTEIN 6.5 GM/DL (6.4-8.2)
[2020-06-25 12:27] LABS: TOTAL 25(OH) VITAMIN D 31.1 NG/ML (30.0-100.0); VITAMIN B12 LEVEL 1153 PG/ML (247-911)
[2020-06-29 09:46] LABS: HEMATOCRIT 44.8 % (42.0-52.0)
== END ==
LOC: M WUC 08:45
PROVIDERS: ATTEND Physician Assistant Surgical
DX: K91.2 Postsurgical malabsorption, not elsewhere classified (principal); E55.9 Vitamin D deficiency, unspecified; Z86.39 Personal history of other endocrine, nutritional and metabolic disease; Z98.84 Bariatric surgery status

== ENCOUNTER → 2020-09-22 | Outpatient (CLI) | payer MEDICARE, OTHER ==
[~2020-09-22] MED LIST changes: -LISI-542 PO; +LISI-898 PO
[2020-09-22 10:08] LABS: BASO # 0.1 10^3/uL (0.0-0.2); BASO % 0.9 % (0.0-1.0); EOS # 0.2 10^3/uL (0.0-0.5); EOS % 3.4 % (0.0-3.0); HEMOGLOBIN 14.8 g/dl (13.5-17.5); LYMPH # 2.8 10^3/uL (1.5-5.0); LYMPH % 48.1 % (24.0-44.0); MEAN CORPUSCULAR HEMOGLOBIN 31.6 pg (27.0-33.0); MEAN CORPUSCULAR HGB CONC 32.2 g/dl (32.0-36.5); MEAN CORPUSCULAR VOLUME 98.3 fl (80.0-96.0); MONO # 0.6 10^3/uL (0.0-0.8); NEUTROPHILS # 2.1 10^3/uL (1.5-8.5); NEUTROPHILS % 36.4 % (36.0-66.0); PLATELET COUNT, AUTOMATED 246 10^3/uL (150-450); RED BLOOD COUNT 4.68 10^6/uL (4.30-6.10); WHITE BLOOD COUNT 5.8 10^3/uL (4.0-10.0)
[2020-09-22 10:31] LABS: HEMOGLOBIN A1c 6.2 %
[2020-09-22 10:36] LABS: ALBUMIN 3.8 GM/DL (3.2-5.2); ALT/SGPT 51 U/L (12-78); BILIRUBIN,TOTAL 1.4 MG/DL (0.2-1.0); BLOOD UREA NITROGEN 15 MG/DL (7-18); CALCIUM LEVEL 9.6 MG/DL (8.8-10.2); CARBON DIOXIDE LEVEL 34 MEQ/L (21-32); CHLORIDE LEVEL 102 MEQ/L (98-107); CHOLESTEROL LEVEL 183 MG/DL (<200); CHOLESTEROL RISK RATIO 2.652 (<5); CREATININE FOR GFR 0.89 MG/DL (0.70-1.30); GLOMERULAR FILTRATION RATE > 60.0 (>49); GLUCOSE, FASTING 109 MG/DL (70-100); HDL CHOLESTEROL 69 MG/DL (>40); LDL CHOLESTEROL 98 MG/DL (<100); NON-HDL-C 114 MG/DL; POTASSIUM SERUM 4.2 MEQ/L (3.5-5.1); SODIUM LEVEL 140 MEQ/L (136-145); TOTAL PROTEIN 6.7 GM/DL (6.4-8.2); TRIGLYCERIDES LEVEL 79 MG/DL (<150)
[2020-09-22 10:44] LABS: TOTAL 25(OH) VITAMIN D 28.2 NG/ML (30.0-100.0)
== END ==
LOC: M WUC 08:03
PROVIDERS: ATTEND Physician Assistant
DX: E78.2 Mixed hyperlipidemia (principal); D64.9 Anemia, unspecified; E11.9 Type 2 diabetes mellitus without complications; Z98.84 Bariatric surgery status

== ENCOUNTER → 2021-03-01 | Outpatient (CLI) | payer MEDICARE, OTHER ==
[~2021-03-01] MED LIST changes: -LISI-898 PO; +LISI5TAB11 PO; +NAPR-849 PO; -NAPR250T4 PO
== END ==
LOC: M WUC 10:16
PROVIDERS: ATTEND Physician Assistant
DX: S33.5XXA Sprain of ligaments of lumbar spine, initial encounter (principal); S73.191A Other sprain of right hip, initial encounter; X58.XXXA Exposure to other specified factors, initial encounter; Y92.89 Other specified places as the place of occurrence of the external cause; Y93.9 Activity, unspecified; Y99.9 Unspecified external cause status

== ENCOUNTER → 2021-03-29 | Outpatient (CLI) | payer MEDICARE, OTHER ==
[2021-03-29 12:47] LABS: BASO # 0.1 10^3/uL (0.0-0.2); BASO % 0.8 % (0.0-1.0); EOS # 0.2 10^3/uL (0.0-0.5); EOS % 3.2 % (0.0-3.0); HEMATOCRIT 45.5 % (42.0-52.0); HEMOGLOBIN 14.8 g/dl (13.5-17.5); LYMPH # 2.5 10^3/uL (1.5-5.0); MEAN CORPUSCULAR HEMOGLOBIN 32.2 pg (27.0-33.0); MEAN CORPUSCULAR HGB CONC 32.5 g/dl (32.0-36.5); MEAN CORPUSCULAR VOLUME 99.1 fl (80.0-96.0); MONO # 0.7 10^3/uL (0.0-0.8); MONO % 10.1 % (2.0-8.0); NEUTROPHILS # 3.7 10^3/uL (1.5-8.5); NEUTROPHILS % 51.6 % (36.0-66.0); PLATELET COUNT, AUTOMATED 293 10^3/uL (150-450); RED BLOOD COUNT 4.59 10^6/uL (4.30-6.10); WHITE BLOOD COUNT 7.2 10^3/uL (4.0-10.0)
[2021-03-29 13:07] LABS: HEMOGLOBIN A1c 5.8 %
[2021-03-29 13:12] LABS: ALBUMIN 3.9 GM/DL (3.2-5.2); ALT/SGPT 38 U/L (12-78); BILIRUBIN,TOTAL 1.2 MG/DL (0.2-1.0); BLOOD UREA NITROGEN 13 MG/DL (7-18); CALCIUM LEVEL 9.4 MG/DL (8.8-10.2); CARBON DIOXIDE LEVEL 32 MEQ/L (21-32); CHLORIDE LEVEL 103 MEQ/L (98-107); CHOLESTEROL LEVEL 199 MG/DL (<200); CHOLESTEROL RISK RATIO 3.262 (<5); CREATININE FOR GFR 0.86 MG/DL (0.70-1.30); GLOMERULAR FILTRATION RATE > 60.0 (>49); GLUCOSE, FASTING 125 MG/DL (70-100); HDL CHOLESTEROL 61 MG/DL (>40); LDL CHOLESTEROL 121 MG/DL (<100); NON-HDL-C 138 MG/DL; POTASSIUM SERUM 3.8 MEQ/L (3.5-5.1); SODIUM LEVEL 139 MEQ/L (136-145); TOTAL PROTEIN 6.7 GM/DL (6.4-8.2); TRIGLYCERIDES LEVEL 86 MG/DL (<150)
[2021-03-29 13:13] LABS: TOTAL 25(OH) VITAMIN D 42.9 NG/ML (30.0-100.0)
[2021-03-29 13:29] LABS: MALB URINE SIEMENS 30.6 MG/L; MAU/CREAT RATIO 15.2 MCG/MG (0.0-30.0)
[2021-03-31 00:07] LABS: PSA TOTAL 0.1 ng/mL (0.0-4.0)
== END ==
LOC: M WUC 08:06
PROVIDERS: ATTEND Family Medicine
DX: N40.0 Benign prostatic hyperplasia without lower urinary tract symptoms (principal); E78.2 Mixed hyperlipidemia; D64.9 Anemia, unspecified; E11.9 Type 2 diabetes mellitus without complications; E55.9 Vitamin D deficiency, unspecified; Z79.899 Other long term (current) drug therapy; R97.20 Elevated prostate specific antigen [PSA]

== ENCOUNTER → 2021-05-30 | Outpatient (CLI) | payer MEDICARE, OTHER ==
[~2021-05-30] MED LIST changes: +LISI-898 PO; -LISI5TAB11 PO
== END ==
LOC: M WUC 08:31
PROVIDERS: ATTEND Physician Assistant
DX: M47.897 Other spondylosis, lumbosacral region (principal); M51.37 Other intervertebral disc degeneration, lumbosacral region; M16.11 Unilateral primary osteoarthritis, right hip

== ENCOUNTER → 2021-09-23 | Outpatient (CLI) | payer MEDICARE, OTHER ==
[~2021-09-23] MED LIST changes: -LISI-898 PO; +LISI5TAB11 PO
[2021-09-23 09:44] LABS: BASO # 0.1 10^3/uL (0.0-0.2); BASO % 0.9 % (0.0-1.0); EOS # 0.3 10^3/uL (0.0-0.5); HEMATOCRIT 44.3 % (42.0-52.0); HEMOGLOBIN 14.7 g/dl (13.5-17.5); LYMPH # 2.5 10^3/uL (1.5-5.0); LYMPH % 32.6 % (24.0-44.0); MEAN CORPUSCULAR HEMOGLOBIN 32.2 pg (27.0-33.0); MEAN CORPUSCULAR HGB CONC 33.2 g/dl (32.0-36.5); MEAN CORPUSCULAR VOLUME 97.1 fl (80.0-96.0); MONO # 0.8 10^3/uL (0.0-0.8); NEUTROPHILS # 3.9 10^3/uL (1.5-8.5); NEUTROPHILS % 51.4 % (36.0-66.0); PLATELET COUNT, AUTOMATED 256 10^3/uL (150-450); RED BLOOD COUNT 4.56 10^6/uL (4.30-6.10); WHITE BLOOD COUNT 7.7 10^3/uL (4.0-10.0)
[2021-09-23 10:01] LABS: HEMOGLOBIN A1c 6.2 %
[2021-09-23 10:18] LABS: ALBUMIN 3.7 GM/DL (3.2-5.2); ALT/SGPT 46 U/L (12-78); BLOOD UREA NITROGEN 15 MG/DL (7-18); CALCIUM LEVEL 9.3 MG/DL (8.8-10.2); CARBON DIOXIDE LEVEL 33 MEQ/L (21-32); CHLORIDE LEVEL 106 MEQ/L (98-107); CHOLESTEROL LEVEL 206 MG/DL (<200); CHOLESTEROL RISK RATIO 3.218 (<5); CREATININE FOR GFR 0.86 MG/DL (0.70-1.30); FREE T4 1.06 NG/DL (0.76-1.46); GLOMERULAR FILTRATION RATE > 60.0 (>49); GLUCOSE, FASTING 120 MG/DL (70-100); HDL CHOLESTEROL 64 MG/DL (>40); LDL CHOLESTEROL 117 MG/DL (<100); NON-HDL-C 142 MG/DL; POTASSIUM SERUM 4.4 MEQ/L (3.5-5.1); SODIUM LEVEL 142 MEQ/L (136-145); TRIGLYCERIDES LEVEL 126 MG/DL (<150)
[2021-09-23 12:40] LABS: FOLATE 13.9 NG/ML; VITAMIN B12 LEVEL 1588 PG/ML
== END ==
LOC: M WUC 08:16
PROVIDERS: ATTEND Physician Assistant
DX: E78.2 Mixed hyperlipidemia (principal); D64.9 Anemia, unspecified; E11.9 Type 2 diabetes mellitus without complications

== ENCOUNTER 2022-02-28 20:23 | Emergency (ER) | payer MEDICARE, OTHER ==
[~2022-02-28] VITALS: Ht 175.3 cm; Wt 90.9 kg
[2022-02-28 20:23] VITALS: BP 177/81
[2022-02-28] MEDS ORDERED: CALT1TAB PO (20:38)
[2022-02-28] MEDS ORDERED: NOXI1TAB PO (20:38)
[2022-02-28] MEDS ORDERED: VITATAB64 PO (20:38)
[2022-02-28 23:15] LABS: BASO % 0.3 % (0.0-1.0); EOS # 0.1 10^3/uL (0.0-0.5); EOS % 0.6 % (0.0-3.0); HEMATOCRIT 43.1 % (42.0-52.0); HEMOGLOBIN 14.7 g/dl (13.5-17.5); LYMPH # 1.5 10^3/uL (1.5-5.0); LYMPH % 12.3 % (24.0-44.0); MEAN CORPUSCULAR HEMOGLOBIN 32.8 pg (27.0-33.0); MEAN CORPUSCULAR HGB CONC 34.1 g/dl (32.0-36.5); MEAN CORPUSCULAR VOLUME 96.2 fl (80.0-96.0); MONO # 0.9 10^3/uL (0.0-0.8); MONO % 7.5 % (2.0-8.0); NEUTROPHILS # 9.8 10^3/uL (1.5-8.5); PLATELET COUNT, AUTOMATED 260 10^3/uL (150-450); RED BLOOD COUNT 4.48 10^6/uL (4.30-6.10); WHITE BLOOD COUNT 12.4 10^3/uL (4.0-10.0)
[2022-02-28 23:42] LABS: ALBUMIN 3.7 GM/DL (3.2-5.2); ALT/SGPT 38 U/L (12-78); BILIRUBIN,DIRECT 0.2 MG/DL (0.0-0.2); BLOOD UREA NITROGEN 14 MG/DL (7-18); CALCIUM LEVEL 9.4 MG/DL (8.8-10.2); CARBON DIOXIDE LEVEL 27 MEQ/L (21-32); CHLORIDE LEVEL 108 MEQ/L (98-107); CREATININE FOR GFR 0.99 MG/DL (0.70-1.30); GLOMERULAR FILTRATION RATE > 60.0 (>49); GLUCOSE, FASTING 154 MG/DL (70-100); LIPASE 150 U/L (73-393); POTASSIUM SERUM 4.6 MEQ/L (3.5-5.1); SODIUM LEVEL 140 MEQ/L (136-145); TOTAL PROTEIN 7.3 GM/DL (6.4-8.2)
[2022-03-01] MEDS ORDERED: NS 1,000 ML IV ONE (00:35)
[2022-03-01] MEDS ORDERED: CIPROFLOXACIN 400 MG in IV 1 EA IV ONE (02:00)
[2022-03-01] MEDS ORDERED: TAMSULOSIN 0.4 MG CAP PO ONE (02:20)
[2022-03-01] MEDS ORDERED: OXYCODONE/APAP 5MG/325MG(HOME DOSE PACK) PO ONE (03:45)
[2022-03-01] MEDS ORDERED: CIPR-249 PO (03:46)
[2022-03-01] MEDS ORDERED: FLOM0.4C39 PO (03:46)
[2022-03-01] MEDS ORDERED: PERC5TAB12 PO (03:46)
== END 2022-03-01 03:53 | disposition home or self-care (01) ==
LOC: M ED 20:23
DX: N21.1 Calculus in urethra (principal); E78.5 Hyperlipidemia, unspecified; I10 Essential (primary) hypertension; Z98.84 Bariatric surgery status; K80.20 Calculus of gallbladder without cholecystitis without obstruction; K44.9 Diaphragmatic hernia without obstruction or gangrene; I25.10 Atherosclerotic heart disease of native coronary artery without angina pectoris; Z79.82 Long term (current) use of aspirin; Z79.899 Other long term (current) drug therapy
CPT/HCPCS: 74176; 80048; 80076; 81001; 83690; 85025; 96361; 96365; 99284; J0744

== ENCOUNTER → 2022-03-08 | Outpatient (CLI) | payer MEDICARE, OTHER ==
[~2022-03-08] MED LIST changes: +CALT1TAB PO; +CIPR-249 PO; +NOXI1TAB PO; +PERC5TAB12 PO; +VITATAB64 PO
[2022-03-08 19:41] LABS: APPEARANCE, URINE MANUAL CLEAR (CLEAR); COLOR, URINE MANUAL YELLOW (YELLOW)
[2022-03-08 19:42] LABS: BILIRUBIN, URINE MANUAL NEGATIVE (NEGATIVE); BLOOD URINE MANUAL NEGATIVE (NEGATIVE); GLUCOSE, URINE (UA) MANUAL NEGATIVE (NEGATIVE); KETONE, URINE MANUAL NEGATIVE (NEGATIVE); LEUKOCYTE ESTERASE, URINE MAN NEGATIVE (NEGATIVE); NITRITE, URINE MANUAL NEGATIVE (NEGATIVE); PROTEIN, URINE MANUAL NEGATIVE (NEGATIVE); SPECIFIC GRAVITY,URINE MANUAL 1.025 (1.002-1.035); UROBILINOGEN, URINE MANUAL NORMAL (NORMAL)
[2022-03-08 19:48] LABS: HEMATOCRIT 43.4 % (42.0-52.0); HEMOGLOBIN 14.3 g/dl (13.5-17.5); MEAN CORPUSCULAR HEMOGLOBIN 32.4 pg (27.0-33.0); MEAN CORPUSCULAR HGB CONC 32.9 g/dl (32.0-36.5); MEAN CORPUSCULAR VOLUME 98.2 fl (80.0-96.0); PLATELET COUNT, AUTOMATED 328 10^3/uL (150-450); RED BLOOD COUNT 4.42 10^6/uL (4.30-6.10); WHITE BLOOD COUNT 10.6 10^3/uL (4.0-10.0)
[2022-03-08 20:02] LABS: INR 0.93; PROTHROMBIN TIME 12.9 SECONDS (12.7-14.5)
[2022-03-08 20:04] LABS: PARTIAL THROMBOPLASTIN TIME 48.5 SECONDS (25.9-37.0)
[2022-03-08 20:24] LABS: CALCIUM LEVEL 8.7 MG/DL (8.8-10.2); CREATININE FOR GFR 1.32 MG/DL (0.70-1.30); GLOMERULAR FILTRATION RATE 57.4 (>49)
== END ==
LOC: M WUC 15:40
PROVIDERS: ATTEND Nurse Practitioner Women's Health
DX: N20.0 Calculus of kidney (principal); Z01.818 Encounter for other preprocedural examination; Z79.01 Long term (current) use of anticoagulants

== ENCOUNTER → 2022-03-23 | Outpatient (REF) | payer MEDICARE, OTHER ==
[2022-03-23 11:45] LABS: APPEARANCE, URINE MANUAL HAZY (CLEAR); COLOR, URINE MANUAL YELLOW (YELLOW); SPECIFIC GRAVITY,URINE MANUAL 1.025 (1.002-1.035)
[2022-03-23 11:46] LABS: BILIRUBIN, URINE MANUAL NEGATIVE (NEGATIVE); BLOOD URINE MANUAL POSITIVE (NEGATIVE); GLUCOSE, URINE (UA) MANUAL NEGATIVE (NEGATIVE); KETONE, URINE MANUAL NEGATIVE (NEGATIVE); LEUKOCYTE ESTERASE, URINE MAN TRACE (NEGATIVE); NITRITE, URINE MANUAL NEGATIVE (NEGATIVE); PROTEIN, URINE MANUAL TRACE mg/dL (NEGATIVE); UROBILINOGEN, URINE MANUAL NORMAL (NORMAL)
[2022-03-23 11:59] LABS: AMORPHOUS SEDIMENT, URINE SMALL AMOUNT (NEGATIVE); BACTERIA, URINE SMALL AMOUNT; CALCIUM OXALATE CRYSTALS,URINE MOD AMOUNT /hpf; HYALINE CAST, URINE NONE SEEN /lpf (0-1); MUCUS, URINE LARGE AMOUNT (NEGATIVE); RBC, URINE 15-20 /hpf (0-3); SQUAMOUS EPITHELIAL CELL URINE SMALL AMOUNT /hpf (SMALL AMT)
== END ==
LOC: M SMT 10:22
PROVIDERS: ATTEND Urology
DX: Z01.818 Encounter for other preprocedural examination (principal)

== ENCOUNTER → 2022-03-26 | Outpatient (CLI) | payer MEDICARE, OTHER | LOC: M LABSMTC 10:40 | PROVIDERS: ATTEND Anesthesiology | DX: Z01.818 Encounter for other preprocedural examination (principal); Z11.52 Encounter for screening for COVID-19 ==

== ENCOUNTER 2022-03-31 06:01 | Day surgery (SDC) | payer MEDICARE, OTHER ==
[~2022-03-31] VITALS: Ht 177.8 cm; Wt 96.2 kg
[~2022-03-31 06:01] MED LIST changes: +ceFAZolin SOD 2 GM in IV 1 EA IV ONE
[2022-03-31] MEDS ORDERED: LR 1,000 ML IV SCH (06:25)
[2022-03-31] MEDS ORDERED: ONDANSETRON 4MG 2ML VIAL As Ordered ONE (07:11)
[2022-03-31] MEDS ORDERED: fentaNYL 100 MCG/2 ML INJECTION As Ordered ONE (07:11)
[2022-03-31] MEDS ORDERED: MIDAZOLAM INJ 2MG/2ML VIAL (J2250 PER 1MG) As Ordered ONE (07:11)
[2022-03-31] MEDS ORDERED: LIDOCAINE 2% 100MG/5ML SDV (FOR ANES.) As Ordered ONE (07:12)
[2022-03-31] MEDS ORDERED: KETOROLAC 60MG 2ML VIAL As Ordered ONE (07:12)
[2022-03-31] MEDS ORDERED: propofoL 200 MG/20 ML VIAL As Ordered ONE (07:12)
[2022-03-31] MEDS ORDERED: ROCURONIUM BROMIDE 50 MG/5 ML VIAL As Ordered ONE (07:12)
[2022-03-31] MEDS ORDERED: dexameTHASONE 4 MG/ML 1ML VIAL (J1100 PER 1MG) As Ordered ONE (07:12)
[2022-03-31] MEDS ORDERED: ACETAMINOPHEN 1000MG 100ML IV BTL (OFIRMEV) (J0131 PER 10MG) As Ordered ONE (07:58)
[2022-03-31] MEDS ORDERED: ePHEDrine SULFATE 25 MG/5 ML(5MG/ML) SYRINGE As Ordered ONE (08:18)
[2022-03-31] MEDS ORDERED: PERCOCET 5MG/325MG TAB PO PRN (09:25)
[2022-03-31] MEDS ORDERED: ISOVUE-300 61% 50ML VIAL As Ordered ONE (09:48)
[2022-03-31 09:50] VITALS: BP 139/62
[2022-04-06 16:08] LABS: CA Oxalate Dihy 10 % (.); Ca Ox Monohydrate 90 % (.); Size 3x3 mm (.)
== END 2022-03-31 10:00 | disposition home or self-care (01) ==
LOC: M SDC 06:01
PROVIDERS: ATTEND Urology
DX: N20.0 Calculus of kidney (principal); I10 Essential (primary) hypertension; E78.5 Hyperlipidemia, unspecified; E11.9 Type 2 diabetes mellitus without complications; G47.33 Obstructive sleep apnea (adult) (pediatric); Z98.84 Bariatric surgery status; Z79.82 Long term (current) use of aspirin; Z79.899 Other long term (current) drug therapy
CPT/HCPCS: 52356; 74420; 82365; C1769; C1894; C2617; J0131; J0690; J1100; J1885; J2250; J2405; J3010; Q9967

== ENCOUNTER → 2022-04-26 | Outpatient (CLI) | payer MEDICARE, OTHER ==
[~2022-04-26] MED LIST changes: -ceFAZolin SOD 2 GM in IV 1 EA IV ONE
[2022-04-26 09:43] LABS: BASO # 0.1 10^3/uL (0.0-0.2); EOS # 0.3 10^3/uL (0.0-0.5); EOS % 4.4 % (0.0-3.0); HEMATOCRIT 42.6 % (42.0-52.0); HEMOGLOBIN 14.1 g/dl (13.5-17.5); LYMPH # 1.7 10^3/uL (1.5-5.0); LYMPH % 27.3 % (24.0-44.0); MEAN CORPUSCULAR HEMOGLOBIN 32.9 pg (27.0-33.0); MEAN CORPUSCULAR HGB CONC 33.1 g/dl (32.0-36.5); MEAN CORPUSCULAR VOLUME 99.3 fl (80.0-96.0); MONO # 0.6 10^3/uL (0.0-0.8); MONO % 9.5 % (2.0-8.0); NEUTROPHILS # 3.5 10^3/uL (1.5-8.5); NEUTROPHILS % 57.3 % (36.0-66.0); PLATELET COUNT, AUTOMATED 266 10^3/uL (150-450); RED BLOOD COUNT 4.29 10^6/uL (4.30-6.10); WHITE BLOOD COUNT 6.1 10^3/uL (4.0-10.0)
[2022-04-26 10:02] LABS: HEMOGLOBIN A1c 6.4 %
[2022-04-26 10:22] LABS: ALBUMIN 3.7 GM/DL (3.2-5.2); ALT/SGPT 89 U/L (12-78); BILIRUBIN,TOTAL 1.3 MG/DL (0.2-1.0); BLOOD UREA NITROGEN 12 MG/DL (7-18); CALCIUM LEVEL 9.2 MG/DL (8.8-10.2); CARBON DIOXIDE LEVEL 30 MEQ/L (21-32); CHLORIDE LEVEL 103 MEQ/L (98-107); CREATININE FOR GFR 1.01 MG/DL (0.70-1.30); GLOMERULAR FILTRATION RATE > 60.0 (>49); GLUCOSE, FASTING 113 MG/DL (70-100); POTASSIUM SERUM 4.6 MEQ/L (3.5-5.1); SODIUM LEVEL 137 MEQ/L (136-145); TOTAL PROTEIN 6.8 GM/DL (6.4-8.2)
[2022-04-26 10:51] LABS: MALB URINE SIEMENS 10.4 MG/L; MAU/CREAT RATIO 6.7 MCG/MG (0.0-30.0); TOTAL 25(OH) VITAMIN D 42.6 NG/ML (30.0-100.0)
[2022-04-27 14:08] LABS: PSA TOTAL 0.2 ng/mL (0.0-4.0)
== END ==
LOC: M WUC 08:17
PROVIDERS: ATTEND Family Medicine
DX: D64.9 Anemia, unspecified (principal); E11.9 Type 2 diabetes mellitus without complications; E55.9 Vitamin D deficiency, unspecified; N40.0 Benign prostatic hyperplasia without lower urinary tract symptoms; Z79.899 Other long term (current) drug therapy; R97.20 Elevated prostate specific antigen [PSA]

== ENCOUNTER → 2022-05-08 | Outpatient (CLI) | payer MEDICARE, OTHER | LOC: M WHC 08:44 | PROVIDERS: ATTEND Family Medicine | DX: R74.8 Abnormal levels of other serum enzymes (principal); K80.20 Calculus of gallbladder without cholecystitis without obstruction ==

== ENCOUNTER → 2022-08-03 | Outpatient (CLI) | payer MEDICARE, OTHER ==
[2022-08-03 09:17] LABS: BASO # 0.1 10^3/uL (0.0-0.2); BASO % 0.9 % (0.0-1.0); EOS # 0.3 10^3/uL (0.0-0.5); EOS % 3.8 % (0.0-3.0); HEMATOCRIT 44.4 % (42.0-52.0); HEMOGLOBIN 14.6 g/dl (13.5-17.5); LYMPH # 2.5 10^3/uL (1.5-5.0); LYMPH % 36.1 % (24.0-44.0); MEAN CORPUSCULAR HEMOGLOBIN 32.1 pg (27.0-33.0); MEAN CORPUSCULAR HGB CONC 32.9 g/dl (32.0-36.5); MEAN CORPUSCULAR VOLUME 97.6 fl (80.0-96.0); MONO # 0.7 10^3/uL (0.0-0.8); MONO % 10.1 % (2.0-8.0); NEUTROPHILS # 3.3 10^3/uL (1.5-8.5); NEUTROPHILS % 48.8 % (36.0-66.0); PLATELET COUNT, AUTOMATED 269 10^3/uL (150-450); RED BLOOD COUNT 4.55 10^6/uL (4.30-6.10); WHITE BLOOD COUNT 6.8 10^3/uL (4.0-10.0)
[2022-08-03 09:47] LABS: CHOLESTEROL RISK RATIO 3.04 (<5); HDL CHOLESTEROL 56.9 MG/DL (>40); LDL CHOLESTEROL 92.1 MG/DL (<100); TOTAL 25(OH) VITAMIN D 36.4 NG/ML (20.0-100.0)
[2022-08-03 10:02] LABS: HEMOGLOBIN A1c 6.3 % (4.0-6.0)
== END ==
LOC: M WUC 08:16
PROVIDERS: ATTEND Family Medicine
DX: E11.69 Type 2 diabetes mellitus with other specified complication (principal); E78.2 Mixed hyperlipidemia; E55.9 Vitamin D deficiency, unspecified; Z79.899 Other long term (current) drug therapy

== ENCOUNTER → 2022-10-10 | Outpatient (CLI) | payer MEDICARE, OTHER ==
[~2022-10-10] MED LIST changes: +SIMV-254 PO; -ZOCO40TA PO
== END ==
LOC: M WUC 09:03
PROVIDERS: ATTEND Urology
DX: N20.0 Calculus of kidney (principal)

== ENCOUNTER → 2022-10-31 | Outpatient (CLI) | payer MEDICARE, OTHER ==
[2022-10-31 12:30] LABS: BASO # 0.1 10^3/uL (0.0-0.2); BASO % 0.5 % (0.0-1.0); EOS # 0.3 10^3/uL (0.0-0.5); EOS % 2.3 % (0.0-3.0); HEMATOCRIT 44.1 % (42.0-52.0); HEMOGLOBIN 14.7 g/dl (13.5-17.5); LYMPH # 2.7 10^3/uL (1.5-5.0); LYMPH % 23.8 % (24.0-44.0); MEAN CORPUSCULAR HEMOGLOBIN 32.4 pg (27.0-33.0); MEAN CORPUSCULAR HGB CONC 33.3 g/dl (32.0-36.5); MEAN CORPUSCULAR VOLUME 97.1 fl (80.0-96.0); MONO # 1.1 10^3/uL (0.0-0.8); MONO % 9.7 % (2.0-8.0); NEUTROPHILS # 7.3 10^3/uL (1.5-8.5); NEUTROPHILS % 63.4 % (36.0-66.0); PLATELET COUNT, AUTOMATED 262 10^3/uL (150-450); RED BLOOD COUNT 4.54 10^6/uL (4.30-6.10); WHITE BLOOD COUNT 11.5 10^3/uL (4.0-10.0)
[2022-10-31 12:49] LABS: HEMOGLOBIN A1c 6.9 % (4.0-6.0)
[2022-10-31 12:53] LABS: THYROID STIMULATING HORMONE 2.292 uIU/ML (0.55-4.78); TOTAL 25(OH) VITAMIN D 29.8 NG/ML (20.0-100.0)
[2022-10-31 12:54] LABS: FOLATE 14.75 NG/ML (>5.4)
[2022-10-31 12:55] LABS: FREE T4 1.24 NG/DL (0.89-1.76); IRON (FE) 48 UG/DL (65-175); PERCENT SATURATION 14.5 % (19.7-50.0); TOTAL IRON BINDING CAPACITY 332 UG/DL (250-425); VITAMIN B12 LEVEL 1806 PG/ML (211-911)
[2022-10-31 12:56] LABS: ALBUMIN 3.8 G/DL (3.2-5.2); ALKALINE PHOSPHATASE 92 U/L (46-116); ALT/SGPT 34 U/L (7.0-40); AST/SGOT 29 U/L (<34); BILIRUBIN,TOTAL 1.6 MG/DL (0.3-1.2); BLOOD UREA NITROGEN 13 MG/DL (9-23); CALCIUM LEVEL 8.9 MG/DL (8.3-10.6); CARBON DIOXIDE LEVEL 28 MMOL/L (20-31); CHLORIDE LEVEL 102 MMOL/L (98-107); CREATININE FOR GFR 0.81 MG/DL (0.70-1.30); GLOMERULAR FILTRATION RATE > 60.0 (>49); GLUCOSE, FASTING 117 MG/DL (74-106); POTASSIUM SERUM 4.2 MMOL/L (3.5-5.1); SODIUM LEVEL 139 MMOL/L (136-145); TOTAL PROTEIN 6.4 G/DL (5.7-8.2)
== END ==
LOC: M WUC 08:20
PROVIDERS: ATTEND Nurse Practitioner Adult Health
DX: E11.69 Type 2 diabetes mellitus with other specified complication (principal); D64.9 Anemia, unspecified; E55.9 Vitamin D deficiency, unspecified

== ENCOUNTER → 2022-11-01 | Outpatient (CLI) | payer MEDICARE, OTHER | LOC: M RAD 13:21 | PROVIDERS: ATTEND Physician Assistant | DX: N20.0 Calculus of kidney (principal); K80.00 Calculus of gallbladder with acute cholecystitis without obstruction ==

== ENCOUNTER → 2022-11-09 | Outpatient (CLI) | payer MEDICARE, OTHER | LOC: M WUC 08:51 | PROVIDERS: ATTEND Nurse Practitioner Adult Health | DX: M25.552 Pain in left hip (principal) ==

== ENCOUNTER → 2023-01-31 | Outpatient (CLI) | payer MEDICARE, OTHER ==
[2023-01-31 10:38] LABS: BASO # 0.1 10^3/uL (0.0-0.2); BASO % 0.8 % (0.0-1.0); EOS # 0.3 10^3/uL (0.0-0.5); EOS % 3.8 % (0.0-3.0); HEMOGLOBIN 14.6 g/dl (13.5-17.5); LYMPH # 2.6 10^3/uL (1.5-5.0); LYMPH % 36.4 % (24.0-44.0); MEAN CORPUSCULAR HEMOGLOBIN 32.8 pg (27.0-33.0); MEAN CORPUSCULAR HGB CONC 33.2 g/dl (32.0-36.5); MEAN CORPUSCULAR VOLUME 98.9 fl (80.0-96.0); MONO # 0.7 10^3/uL (0.0-0.8); MONO % 9.8 % (2.0-8.0); NEUTROPHILS # 3.5 10^3/uL (1.5-8.5); NEUTROPHILS % 48.9 % (36.0-66.0); PLATELET COUNT, AUTOMATED 268 10^3/uL (150-450); RED BLOOD COUNT 4.45 10^6/uL (4.30-6.10); WHITE BLOOD COUNT 7.2 10^3/uL (4.0-10.0)
[2023-01-31 11:03] LABS: HEMOGLOBIN A1c 6.7 % (4.0-6.0)
[2023-01-31 11:09] LABS: ALBUMIN 3.7 G/DL (3.2-5.2); ALKALINE PHOSPHATASE 92 U/L (46-116); ALT/SGPT 17 U/L (7.0-40); AST/SGOT 16 U/L (<34); BILIRUBIN,TOTAL 1.4 MG/DL (0.3-1.2); BLOOD UREA NITROGEN 15 MG/DL (9-23); CALCIUM LEVEL 8.9 MG/DL (8.3-10.6); CARBON DIOXIDE LEVEL 28 MMOL/L (20-31); CHLORIDE LEVEL 105 MMOL/L (98-107); CHOLESTEROL LEVEL 175 MG/DL (<200); CHOLESTEROL RISK RATIO 3.33 (<5); CREATININE FOR GFR 0.76 MG/DL (0.70-1.30); GLOMERULAR FILTRATION RATE > 60.0 (>49); GLUCOSE, FASTING 126 MG/DL (74-106); HDL CHOLESTEROL 52.4 MG/DL (>40); LDL CHOLESTEROL 105.6 MG/DL (<100); NON-HDL-C 122.6 MG/DL; POTASSIUM SERUM 4.2 MMOL/L (3.5-5.1); SODIUM LEVEL 138 MMOL/L (136-145); TOTAL PROTEIN 6.4 G/DL (5.7-8.2); TRIGLYCERIDES LEVEL 85 MG/DL (<150)
== END ==
LOC: M WUC 08:34
PROVIDERS: ATTEND Nurse Practitioner Adult Health
DX: E11.69 Type 2 diabetes mellitus with other specified complication (principal); E78.2 Mixed hyperlipidemia

== ENCOUNTER → 2023-05-09 | Outpatient (CLI) | payer MEDICARE, OTHER ==
[2023-05-09 10:30] LABS: BASO # 0.1 10^3/uL (0.0-0.2); EOS # 0.3 10^3/uL (0.0-0.5); EOS % 4.6 % (0.0-3.0); HEMATOCRIT 45.8 % (42.0-52.0); HEMOGLOBIN 14.9 g/dl (13.5-17.5); LYMPH # 2.5 10^3/uL (1.5-5.0); LYMPH % 34.2 % (24.0-44.0); MEAN CORPUSCULAR HEMOGLOBIN 32.3 pg (27.0-33.0); MEAN CORPUSCULAR HGB CONC 32.5 g/dl (32.0-36.5); MEAN CORPUSCULAR VOLUME 99.1 fl (80.0-96.0); MONO # 0.8 10^3/uL (0.0-0.8); NEUTROPHILS # 3.5 10^3/uL (1.5-8.5); NEUTROPHILS % 49.1 % (36.0-66.0); PLATELET COUNT, AUTOMATED 280 10^3/uL (150-450); RED BLOOD COUNT 4.62 10^6/uL (4.30-6.10); WHITE BLOOD COUNT 7.2 10^3/uL (4.0-10.0)
[2023-05-09 10:57] LABS: CREATININE, URINE 175.1 MG/DL; MAU/CREAT RATIO 3.4 MCG/MG (0.0-30.0); TOTAL IRON BINDING CAPACITY 314 UG/DL (250-425)
[2023-05-09 10:58] LABS: ALBUMIN 3.8 G/DL (3.2-5.2); ALKALINE PHOSPHATASE 94 U/L (46-116); ALT/SGPT 34 U/L (7.0-40); AST/SGOT 32 U/L (<34); BILIRUBIN,TOTAL 1.5 MG/DL (0.3-1.2); BLOOD UREA NITROGEN 10 MG/DL (9-23); CALCIUM LEVEL 9.3 MG/DL (8.3-10.6); CARBON DIOXIDE LEVEL 32 MMOL/L (20-31); CHLORIDE LEVEL 104 MMOL/L (98-107); CREATININE FOR GFR 0.84 MG/DL (0.70-1.30); GLOMERULAR FILTRATION RATE > 60.0 (>49); GLUCOSE, FASTING 134 MG/DL (74-106); IRON (FE) 148 UG/DL (65-175); PERCENT SATURATION 47.1 % (19.7-50.0); POTASSIUM SERUM 4.3 MMOL/L (3.5-5.1); SODIUM LEVEL 142 MMOL/L (136-145); TOTAL PROTEIN 6.7 G/DL (5.7-8.2)
[2023-05-09 11:01] LABS: TOTAL 25(OH) VITAMIN D 38.4 NG/ML (20.0-100.0)
[2023-05-09 11:02] LABS: FOLATE 22.04 NG/ML (>5.4); VITAMIN B12 LEVEL 1764 PG/ML (211-911)
[2023-05-09 11:08] LABS: HEMOGLOBIN A1c 6.8 % (4.0-6.0)
[2023-05-10 23:07] LABS: PSA TOTAL 0.1 ng/mL (0.0-4.0)
== END ==
LOC: M WUC 08:11
PROVIDERS: ATTEND Nurse Practitioner Adult Health
DX: E11.69 Type 2 diabetes mellitus with other specified complication (principal); E55.9 Vitamin D deficiency, unspecified; D50.9 Iron deficiency anemia, unspecified; Z12.5 Encounter for screening for malignant neoplasm of prostate; Z79.899 Other long term (current) drug therapy; R97.20 Elevated prostate specific antigen [PSA]

== ENCOUNTER → 2023-05-24 | Outpatient (CLI) | payer MEDICARE, OTHER | LOC: M PLAIMG 10:14 | PROVIDERS: ATTEND Physician Assistant | DX: N20.0 Calculus of kidney (principal); K80.20 Calculus of gallbladder without cholecystitis without obstruction ==

== ENCOUNTER → 2023-07-04 | Day surgery (SDC) | payer MEDICARE, OTHER ==
[~2023-07-04] VITALS: Ht 177.8 cm; Wt 105.6 kg
[~2023-07-04] MED LIST changes: +ACET1TAB55 PO; +LIDOCAINE 2% 100MG/5ML SDV (FOR ANES.) As Ordered ONE; +NS 1,000 ML IV ONE; +PEDI1TAB15 PO; +TEMA15CA2 PO; +[UNRECOGNIZED DRUG - CODE] PO; +propofoL 200 MG/20 ML VIAL As Ordered ONE
[2023-07-04 14:32] VITALS: TEMP 97.9
[2023-07-04 14:50] VITALS: BP 132/74; O2SAT 95
== END | disposition home or self-care (01) ==
LOC: M OPP 11:36
PROVIDERS: ATTEND Internal Medicine Gastroenterology
DX: Z12.11 Encounter for screening for malignant neoplasm of colon (principal); Z86.010 Personal history of colon polyps; K64.0 First degree hemorrhoids; K57.30 Diverticulosis of large intestine without perforation or abscess without bleeding; Z79.02 Long term (current) use of antithrombotics/antiplatelets; Z79.82 Long term (current) use of aspirin; Z79.899 Other long term (current) drug therapy; Z98.84 Bariatric surgery status

== ENCOUNTER → 2023-08-09 | Outpatient (CLI) | payer MEDICARE, OTHER ==
[~2023-08-09] MED LIST changes: -LIDOCAINE 2% 100MG/5ML SDV (FOR ANES.) As Ordered ONE; -NS 1,000 ML IV ONE; -propofoL 200 MG/20 ML VIAL As Ordered ONE
[2023-08-09 09:40] LABS: BASO # 0.1 10^3/uL (0.0-0.2); BASO % 0.7 % (0.0-1.0); EOS # 0.3 10^3/uL (0.0-0.5); EOS % 4.2 % (0.0-3.0); HEMATOCRIT 45.5 % (42.0-52.0); HEMOGLOBIN 15.3 g/dl (13.5-17.5); LYMPH # 2.8 10^3/uL (1.5-5.0); LYMPH % 34.1 % (24.0-44.0); MEAN CORPUSCULAR HEMOGLOBIN 32.3 pg (27.0-33.0); MEAN CORPUSCULAR HGB CONC 33.6 g/dl (32.0-36.5); MEAN CORPUSCULAR VOLUME 96.2 fl (80.0-96.0); MONO # 0.9 10^3/uL (0.0-0.8); MONO % 10.6 % (2.0-8.0); NEUTROPHILS # 4.1 10^3/uL (1.5-8.5); NEUTROPHILS % 50.3 % (36.0-66.0); PLATELET COUNT, AUTOMATED 262 10^3/uL (150-450); RED BLOOD COUNT 4.73 10^6/uL (4.30-6.10); WHITE BLOOD COUNT 8.2 10^3/uL (4.0-10.0)
[2023-08-09 09:57] LABS: HEMOGLOBIN A1c 7.2 % (4.0-6.0)
[2023-08-09 10:20] LABS: ALBUMIN 3.7 G/DL (3.2-5.2); ALKALINE PHOSPHATASE 96 U/L (46-116); ALT/SGPT 29 U/L (7.0-40); AST/SGOT 22 U/L (<34); BILIRUBIN,TOTAL 1.6 MG/DL (0.3-1.2); BLOOD UREA NITROGEN 13 MG/DL (9-23); CALCIUM LEVEL 9.3 MG/DL (8.3-10.6); CARBON DIOXIDE LEVEL 29 MMOL/L (20-31); CHLORIDE LEVEL 104 MMOL/L (98-107); GLOMERULAR FILTRATION RATE > 60.0 (>49); GLUCOSE, FASTING 146 MG/DL (74-106); POTASSIUM SERUM 4.2 MMOL/L (3.5-5.1); SODIUM LEVEL 137 MMOL/L (136-145); TOTAL PROTEIN 6.5 G/DL (5.7-8.2)
== END ==
LOC: M WUC 08:08
PROVIDERS: ATTEND Nurse Practitioner Adult Health
DX: E11.69 Type 2 diabetes mellitus with other specified complication (principal)

== ENCOUNTER → 2023-10-17 | Outpatient (CLI) | payer MEDICARE, OTHER | LOC: M SLEEP 20:00 | PROVIDERS: ATTEND Nurse Practitioner Adult Health | DX: G47.33 Obstructive sleep apnea (adult) (pediatric) (principal) ==

== ENCOUNTER → 2023-11-08 | Outpatient (CLI) | payer MEDICARE, OTHER ==
[2023-11-08 10:58] LABS: BASO # 0.1 10^3/uL (0.0-0.2); BASO % 1.2 % (0.0-1.0); EOS # 0.3 10^3/uL (0.0-0.5); EOS % 4.2 % (0.0-3.0); HEMATOCRIT 43.8 % (42.0-52.0); HEMOGLOBIN 14.6 g/dl (13.5-17.5); LYMPH # 1.9 10^3/uL (1.5-5.0); LYMPH % 23.4 % (24.0-44.0); MEAN CORPUSCULAR HEMOGLOBIN 32.2 pg (27.0-33.0); MEAN CORPUSCULAR HGB CONC 33.3 g/dl (32.0-36.5); MEAN CORPUSCULAR VOLUME 96.5 fl (80.0-96.0); MONO # 1.3 10^3/uL (0.0-0.8); MONO % 15.8 % (2.0-8.0); NEUTROPHILS # 4.4 10^3/uL (1.5-8.5); NEUTROPHILS % 55.2 % (36.0-66.0); PLATELET COUNT, AUTOMATED 233 10^3/uL (150-450); RED BLOOD COUNT 4.54 10^6/uL (4.30-6.10)
[2023-11-08 11:10] LABS: HEMOGLOBIN A1c 7.9 % (4.0-6.0)
[2023-11-08 11:28] LABS: TOTAL IRON BINDING CAPACITY 304 UG/DL (250-425)
[2023-11-08 11:29] LABS: ALBUMIN 3.5 G/DL (3.2-5.2); ALKALINE PHOSPHATASE 98 U/L (46-116); ALT/SGPT 31 U/L (7.0-40); AST/SGOT 23 U/L (<34); BILIRUBIN,TOTAL 1.2 MG/DL (0.3-1.2); BLOOD UREA NITROGEN 12 MG/DL (9-23); CALCIUM LEVEL 8.4 MG/DL (8.3-10.6); CARBON DIOXIDE LEVEL 28 MMOL/L (20-31); CHLORIDE LEVEL 100 MMOL/L (98-107); CHOLESTEROL LEVEL 189 MG/DL (<200); CHOLESTEROL RISK RATIO 3.41 (<5); CREATININE FOR GFR 0.79 MG/DL (0.70-1.30); GLOMERULAR FILTRATION RATE > 60.0 (>49); GLUCOSE, FASTING 159 MG/DL (74-106); HDL CHOLESTEROL 55.4 MG/DL (>40); IRON (FE) 40 UG/DL (65-175); LDL CHOLESTEROL 107.6 MG/DL (<100); NON-HDL-C 133.6 MG/DL; PERCENT SATURATION 13.2 % (19.7-50.0); POTASSIUM SERUM 3.9 MMOL/L (3.5-5.1); SODIUM LEVEL 136 MMOL/L (136-145); TOTAL PROTEIN 6.3 G/DL (5.7-8.2); TRIGLYCERIDES LEVEL 130 MG/DL (<150)
[2023-11-08 11:30] LABS: VITAMIN B12 LEVEL 1312 PG/ML (211-911)
== END ==
LOC: M WUC 08:41
PROVIDERS: ATTEND Nurse Practitioner Adult Health
DX: E11.69 Type 2 diabetes mellitus with other specified complication (principal); D50.9 Iron deficiency anemia, unspecified; Z98.84 Bariatric surgery status

== ENCOUNTER → 2024-01-11 | Outpatient (CLI) | payer MEDICARE, OTHER ==
[2024-01-11 16:14] LABS: BASO % 0.4 % (0.0-1.0); EOS # 0.4 10^3/uL (0.0-0.5); EOS % 3.9 % (0.0-3.0); HEMATOCRIT 46.1 % (42.0-52.0); HEMOGLOBIN 15.4 g/dl (13.5-17.5); LYMPH # 2.6 10^3/uL (1.5-5.0); LYMPH % 29.2 % (24.0-44.0); MEAN CORPUSCULAR HEMOGLOBIN 32.6 pg (27.0-33.0); MEAN CORPUSCULAR HGB CONC 33.4 g/dl (32.0-36.5); MEAN CORPUSCULAR VOLUME 97.7 fl (80.0-96.0); NEUTROPHILS # 4.9 10^3/uL (1.5-8.5); NEUTROPHILS % 55.2 % (36.0-66.0); PLATELET COUNT, AUTOMATED 277 10^3/uL (150-450); RED BLOOD COUNT 4.72 10^6/uL (4.30-6.10); WHITE BLOOD COUNT 8.9 10^3/uL (4.0-10.0)
[2024-01-11 16:34] LABS: ERYTHROCYTE SEDIMENTATION RATE 45 mm/hr (0-20)
== END ==
LOC: M PLALAB 13:29
PROVIDERS: ATTEND Nurse Practitioner Adult Health
DX: Z11.9 Encounter for screening for infectious and parasitic diseases, unspecified (principal); W57.XXXA Bitten or stung by nonvenomous insect and other nonvenomous arthropods, initial encounter

== ENCOUNTER → 2024-02-05 | Outpatient (CLI) | payer MEDICARE, OTHER ==
[2024-02-05 14:52] LABS: TOTAL IRON BINDING CAPACITY 281 UG/DL (250-425)
[2024-02-05 14:53] LABS: ALBUMIN 3.5 G/DL (3.2-5.2); ALKALINE PHOSPHATASE 103 U/L (46-116); ALT/SGPT 35 U/L (7.0-40); AST/SGOT 22 U/L (<34); BLOOD UREA NITROGEN 8 MG/DL (9-23); CALCIUM LEVEL 9.1 MG/DL (8.3-10.6); CARBON DIOXIDE LEVEL 28 MMOL/L (20-31); CHLORIDE LEVEL 106 MMOL/L (98-107); CREATININE FOR GFR 0.68 MG/DL (0.70-1.30); GLOMERULAR FILTRATION RATE > 60.0 (>49); GLUCOSE, FASTING 180 MG/DL (74-106); IRON (FE) 88 UG/DL (65-175); PERCENT SATURATION 31.3 % (19.7-50.0); POTASSIUM SERUM 4.1 MMOL/L (3.5-5.1); SODIUM LEVEL 139 MMOL/L (136-145); TOTAL PROTEIN 6.2 G/DL (5.7-8.2)
[2024-02-05 14:55] LABS: BASO # 0.1 10^3/uL (0.0-0.2); BASO % 0.7 % (0.0-1.0); EOS # 0.3 10^3/uL (0.0-0.5); HEMATOCRIT 42.6 % (42.0-52.0); HEMOGLOBIN 14.1 g/dl (13.5-17.5); LYMPH # 2.6 10^3/uL (1.5-5.0); LYMPH % 32.9 % (24.0-44.0); MEAN CORPUSCULAR HEMOGLOBIN 32.4 pg (27.0-33.0); MEAN CORPUSCULAR HGB CONC 33.1 g/dl (32.0-36.5); MEAN CORPUSCULAR VOLUME 97.9 fl (80.0-96.0); MONO # 0.8 10^3/uL (0.0-0.8); MONO % 10.5 % (2.0-8.0); NEUTROPHILS # 4.1 10^3/uL (1.5-8.5); NEUTROPHILS % 51.5 % (36.0-66.0); PLATELET COUNT, AUTOMATED 313 10^3/uL (150-450); RED BLOOD COUNT 4.35 10^6/uL (4.30-6.10)
[2024-02-05 15:46] LABS: HEMOGLOBIN A1c 8.6 % (4.0-6.0)
== END ==
LOC: M PLALAB 09:08
PROVIDERS: ATTEND Nurse Practitioner Adult Health
DX: E11.69 Type 2 diabetes mellitus with other specified complication (principal); D50.9 Iron deficiency anemia, unspecified

== ENCOUNTER → 2024-05-20 | Outpatient (CLI) | payer MEDICARE, OTHER ==
[2024-05-20 11:30] LABS: BASO # 0.1 10^3/uL (0.0-0.2); BASO % 0.8 % (0.0-1.0); EOS # 0.3 10^3/uL (0.0-0.5); EOS % 3.8 % (0.0-3.0); HEMATOCRIT 45.9 % (42.0-52.0); HEMOGLOBIN 15.1 g/dl (13.5-17.5); LYMPH % 35.3 % (24.0-44.0); MEAN CORPUSCULAR HEMOGLOBIN 32.6 pg (27.0-33.0); MEAN CORPUSCULAR HGB CONC 32.9 g/dl (32.0-36.5); MEAN CORPUSCULAR VOLUME 99.1 fl (80.0-96.0); MONO # 1.1 10^3/uL (0.0-0.8); MONO % 12.6 % (2.0-8.0); NEUTROPHILS # 3.9 10^3/uL (1.5-8.5); NEUTROPHILS % 47.1 % (36.0-66.0); PLATELET COUNT, AUTOMATED 279 10^3/uL (150-450); RED BLOOD COUNT 4.63 10^6/uL (4.30-6.10); WHITE BLOOD COUNT 8.4 10^3/uL (4.0-10.0)
[2024-05-20 12:03] LABS: ALBUMIN 3.8 G/DL (3.2-5.2); ALKALINE PHOSPHATASE 88 U/L (46-116); ALT/SGPT 34 U/L (7.0-40); AST/SGOT 27 U/L (<34); BLOOD UREA NITROGEN 13 MG/DL (9-23); CALCIUM LEVEL 9.5 MG/DL (8.3-10.6); CARBON DIOXIDE LEVEL 30 MMOL/L (20-31); CHLORIDE LEVEL 104 MMOL/L (98-107); CHOLESTEROL LEVEL 189 MG/DL (<200); CHOLESTEROL RISK RATIO 3.18 (<5); FREE T4 1.42 NG/DL (0.89-1.76); GLOMERULAR FILTRATION RATE > 60.0 (>42); GLUCOSE, FASTING 92 MG/DL (74-106); HDL CHOLESTEROL 59.4 MG/DL (>40); LDL CHOLESTEROL 114.4 MG/DL (<100); NON-HDL-C 129.6 MG/DL; POTASSIUM SERUM 4.4 MMOL/L (3.5-5.1); SODIUM LEVEL 139 MMOL/L (136-145); THYROID STIMULATING HORMONE 2.072 uIU/ML (0.55-4.78); TRIGLYCERIDES LEVEL 76 MG/DL (<150)
[2024-05-20 12:18] LABS: HEMOGLOBIN A1c 6.2 % (4.0-6.0)
[2024-05-20 16:17] LABS: CREATININE, URINE 37.6 MG/DL; MALB URINE SIEMENS < 3.0 MG/L; MAU/CREAT RATIO 7.9 MCG/MG (0.0-30.0)
== END ==
LOC: M WUC 08:36
PROVIDERS: ATTEND Nurse Practitioner Adult Health
DX: E11.69 Type 2 diabetes mellitus with other specified complication (principal); E78.2 Mixed hyperlipidemia

== ENCOUNTER → 2024-08-25 | Outpatient (CLI) | payer MEDICARE, OTHER ==
[2024-08-25 10:06] LABS: BASO # 0.1 10^3/uL (0.0-0.2); BASO % 0.9 % (0.0-1.0); EOS # 0.4 10^3/uL (0.0-0.5); EOS % 4.5 % (0.0-3.0); HEMATOCRIT 43.7 % (42.0-52.0); HEMOGLOBIN 14.2 g/dl (13.5-17.5); LYMPH # 2.8 10^3/uL (1.5-5.0); LYMPH % 36.3 % (24.0-44.0); MEAN CORPUSCULAR HEMOGLOBIN 32.8 pg (27.0-33.0); MEAN CORPUSCULAR HGB CONC 32.5 g/dl (32.0-36.5); MEAN CORPUSCULAR VOLUME 100.9 fl (80.0-96.0); MONO # 0.8 10^3/uL (0.0-0.8); MONO % 9.8 % (2.0-8.0); NEUTROPHILS # 3.8 10^3/uL (1.5-8.5); NEUTROPHILS % 48.4 % (36.0-66.0); PLATELET COUNT, AUTOMATED 294 10^3/uL (150-450); RED BLOOD COUNT 4.33 10^6/uL (4.30-6.10); WHITE BLOOD COUNT 7.8 10^3/uL (4.0-10.0)
[2024-08-25 10:23] LABS: HEMOGLOBIN A1c 6.2 % (4.0-6.0)
[2024-08-25 10:30] LABS: ALBUMIN 3.6 G/DL (3.2-5.2); ALKALINE PHOSPHATASE 74 U/L (40-129); ALT/SGPT 28 U/L (7.0-40); AST/SGOT 24 U/L (<34); BILIRUBIN,TOTAL 0.8 MG/DL (0.3-1.2); BLOOD UREA NITROGEN 14 MG/DL (9-23); CALCIUM LEVEL 8.8 MG/DL (8.3-10.6); CARBON DIOXIDE LEVEL 30 MMOL/L (20-31); CHLORIDE LEVEL 105 MMOL/L (98-107); CREATININE FOR GFR 0.83 MG/DL (0.70-1.30); GLOMERULAR FILTRATION RATE > 60.0 (>42); GLUCOSE, FASTING 103 MG/DL (74-106); IRON (FE) 100 UG/DL (65-175); PERCENT SATURATION 34.4 % (19.7-50.0); SODIUM LEVEL 145 MMOL/L (136-145); TOTAL IRON BINDING CAPACITY 291 UG/DL (250-425); TOTAL PROTEIN 6.5 G/DL (5.7-8.2)
[2024-08-25 10:32] LABS: TOTAL 25(OH) VITAMIN D 51.5 NG/ML (20.0-100.0)
== END ==
LOC: M PLALAB 07:36
PROVIDERS: ATTEND Nurse Practitioner Adult Health
DX: E11.69 Type 2 diabetes mellitus with other specified complication (principal); D50.9 Iron deficiency anemia, unspecified; E55.9 Vitamin D deficiency, unspecified; Z12.5 Encounter for screening for malignant neoplasm of prostate
CPT/HCPCS: 36415; 80053; 82306; 83036; 83550; 85025; G0103

== ENCOUNTER → 2024-11-19 | Outpatient (CLI) | payer MEDICARE, OTHER ==
[2024-11-19 10:43] LABS: BASO % 0.6 % (0.0-1.0); EOS # 0.3 10^3/uL (0.0-0.5); EOS % 4.2 % (0.0-3.0); HEMATOCRIT 43.1 % (42.0-52.0); HEMOGLOBIN 14.3 g/dl (13.5-17.5); LYMPH # 2.9 10^3/uL (1.5-5.0); LYMPH % 45.8 % (24.0-44.0); MEAN CORPUSCULAR HEMOGLOBIN 32.3 pg (27.0-33.0); MEAN CORPUSCULAR HGB CONC 33.2 g/dl (32.0-36.5); MEAN CORPUSCULAR VOLUME 97.3 fl (80.0-96.0); MONO # 0.8 10^3/uL (0.0-0.8); MONO % 12.3 % (2.0-8.0); NEUTROPHILS # 2.3 10^3/uL (1.5-8.5); NEUTROPHILS % 36.9 % (36.0-66.0); PLATELET COUNT, AUTOMATED 223 10^3/uL (150-450); RED BLOOD COUNT 4.43 10^6/uL (4.30-6.10); WHITE BLOOD COUNT 6.2 10^3/uL (4.0-10.0)
[2024-11-19 11:03] LABS: HEMOGLOBIN A1c 6.4 % (4.0-6.0)
[2024-11-19 11:04] LABS: ALBUMIN 3.5 G/DL (3.2-5.2); ALKALINE PHOSPHATASE 71 U/L (40-129); ALT/SGPT 35 U/L (7.0-40); AST/SGOT 38 U/L (<34); BILIRUBIN,TOTAL 1.1 MG/DL (0.3-1.2); BLOOD UREA NITROGEN 16 MG/DL (9-23); CALCIUM LEVEL 8.3 MG/DL (8.3-10.6); CARBON DIOXIDE LEVEL 29 MMOL/L (20-31); CHLORIDE LEVEL 104 MMOL/L (98-107); CHOLESTEROL LEVEL 172 MG/DL (<200); CHOLESTEROL RISK RATIO 4.37 (<5); CREATININE FOR GFR 0.85 MG/DL (0.70-1.30); GLOMERULAR FILTRATION RATE > 90.0 (>42); GLUCOSE, FASTING 115 MG/DL (74-106); HDL CHOLESTEROL 39.3 MG/DL (>40); LDL CHOLESTEROL 109.3 MG/DL (<100); NON-HDL-C 132.7 MG/DL; POTASSIUM SERUM 4.1 MMOL/L (3.5-5.1); SODIUM LEVEL 139 MMOL/L (136-145); TOTAL PROTEIN 6.2 G/DL (5.7-8.2); TRIGLYCERIDES LEVEL 117 MG/DL (<150)
== END ==
LOC: M PLALAB 07:47
PROVIDERS: ATTEND Nurse Practitioner Adult Health
DX: E11.69 Type 2 diabetes mellitus with other specified complication (principal); E78.2 Mixed hyperlipidemia

== ENCOUNTER → 2025-02-18 | Outpatient (CLI) | payer MEDICARE, OTHER ==
[~2025-02-18] MED LIST changes: -FLOM0.4C39 PO; +TAMS-18 PO
[2025-02-18 13:03] LABS: BASO # 0.1 10^3/uL (0.0-0.2); BASO % 0.8 % (0.0-1.0); EOS # 0.3 10^3/uL (0.0-0.5); EOS % 3.4 % (0.0-3.0); LYMPH # 2.2 10^3/uL (1.5-5.0); LYMPH % 29.9 % (24.0-44.0); MONO # 0.8 10^3/uL (0.0-0.8); MONO % 10.9 % (2.0-8.0); NEUTROPHILS # 4.1 10^3/uL (1.5-8.5); NEUTROPHILS % 54.7 % (36.0-66.0); PLATELET COUNT, AUTOMATED 274 10^3/uL (150-450)
[2025-02-18 13:16] LABS: ESTIMATED AVERAGE GLUCOSE 140.0 MG/DL (60-110)
[2025-02-18 13:32] LABS: CALCIUM LEVEL 8.8 MG/DL (8.3-10.6); CARBON DIOXIDE LEVEL 30 MMOL/L (20-31); CHLORIDE LEVEL 102 MMOL/L (98-107); CREATININE FOR GFR 0.87 MG/DL (0.70-1.30); GLOMERULAR FILTRATION RATE > 90.0 (>42); POTASSIUM SERUM 4.1 MMOL/L (3.5-5.1); SODIUM LEVEL 142 MMOL/L (136-145)
== END ==
LOC: M PLALAB 08:47
PROVIDERS: ATTEND Nurse Practitioner Adult Health
DX: E11.69 Type 2 diabetes mellitus with other specified complication (principal)

== ENCOUNTER → 2025-03-24 | Outpatient (CLI) | payer MEDICARE, OTHER ==
[~2025-03-24] MED LIST changes: +BARIUM SULFATE 700 MG TABLET As Ordered ONE; +E-Z-PAQUE 96% w/w SUSP 176 GM BTL As Ordered ONE; +VARIBAR NECTAR 40% w/v 240ML SUSP BTL As Ordered ONE; +VARIBAR PUDDING 40% w/v 230ML TUBE As Ordered ONE
== END ==
LOC: M RAD 12:47
PROVIDERS: ATTEND Nurse Practitioner Adult Health
DX: R13.12 Dysphagia, oropharyngeal phase (principal)

== ENCOUNTER 2025-04-22 09:21 | Outpatient (RCR) | payer MEDICARE, OTHER ==
[~2025-04-22 09:21] MED LIST changes: -BARIUM SULFATE 700 MG TABLET As Ordered ONE; -E-Z-PAQUE 96% w/w SUSP 176 GM BTL As Ordered ONE; -VARIBAR NECTAR 40% w/v 240ML SUSP BTL As Ordered ONE; -VARIBAR PUDDING 40% w/v 230ML TUBE As Ordered ONE
== END 2025-04-28 ==
LOC: M ST 09:21
PROVIDERS: ATTEND Nurse Practitioner Adult Health
DX: R13.10 Dysphagia, unspecified (principal)

== ENCOUNTER → 2025-06-01 | Outpatient (CLI) | payer MEDICARE, OTHER ==
[2025-06-01 11:40] LABS: BASO # 0.1 10^3/uL (0.0-0.2); BASO % 0.9 % (0.0-1.0); EOS # 0.3 10^3/uL (0.0-0.5); EOS % 3.9 % (0.0-3.0); LYMPH # 2.8 10^3/uL (1.5-5.0); LYMPH % 34.2 % (24.0-44.0); MONO # 0.9 10^3/uL (0.0-0.8); MONO % 10.7 % (2.0-8.0); NEUTROPHILS # 4.1 10^3/uL (1.5-8.5); NEUTROPHILS % 50.2 % (36.0-66.0); PLATELET COUNT, AUTOMATED 283 10^3/uL (150-450)
[2025-06-01 12:10] LABS: ALT/SGPT 31 U/L (7.0-40); AST/SGOT 27 U/L (<34); CALCIUM LEVEL 9.1 MG/DL (8.3-10.6); CARBON DIOXIDE LEVEL 32 MMOL/L (20-31); CHLORIDE LEVEL 102 MMOL/L (98-107); CHOLESTEROL LEVEL 181 MG/DL (<200); CHOLESTEROL RISK RATIO 3.35 (<5); CREATININE FOR GFR 0.87 MG/DL (0.70-1.30); GLOMERULAR FILTRATION RATE > 90.0 (>42); LDL CHOLESTEROL 103.1 MG/DL (<100); NON-HDL-C 127.1 MG/DL; POTASSIUM SERUM 4.4 MMOL/L (3.5-5.1); SODIUM LEVEL 142 MMOL/L (136-145); TRIGLYCERIDES LEVEL 120 MG/DL (<150)
[2025-06-01 12:20] LABS: ESTIMATED AVERAGE GLUCOSE 140.0 MG/DL (60-110)
[2025-06-01 13:53] LABS: CREATININE, URINE 158.2 MG/DL; MALB URINE SIEMENS 5.0 MG/L; MAU/CREAT RATIO 3.1 MCG/MG (0.0-30.0)
== END ==
LOC: M PLALAB 07:52
PROVIDERS: ATTEND Family Medicine
DX: E11.69 Type 2 diabetes mellitus with other specified complication (principal); E78.2 Mixed hyperlipidemia